=== PATIENT | male | born 1965 | race Caucasian/White ===

== ENCOUNTER → 2022-04-20 | Outpatient (CLI) | payer OTHER, SELFPAY ==
--- NOTE | 2022-04-20 16:56 | RAD_ITS ---
EXAM: XR CHEST, 2 VIEWS CLINICAL INDICATION: SOB TECHNIQUE: Frontal and lateral views of the chest. This report was created using Ribbit report generation technology. COMPARISON: None. FINDINGS: LUNGS AND PLEURAL SPACES: Unremarkable. No consolidation or edema. No pneumothorax. No effusion. HEART: Unremarkable. Cardiac silhouette not enlarged. MEDIASTINUM: Central airways and mediastinal contour are unremarkable. BONES/JOINTS: Unremarkable. SOFT TISSUES: Unremarkable. RAD/Chest PA and Lateral IMPRESSION: No radiographic evidence of acute cardiopulmonary disease. Electronically Signed: Herminio Bang MD at 20:32 EDT ,
[2022-04-20 17:52] LABS: Mucous, Urine 0 SEEN /hpf (<or=2+); Red Blood Cells-Urine 0 SEEN /hpf (0-5); White Blood Cells 0 SEEN /hpf (0-5)
[2022-04-20 18:07] LABS: Color, Urine Yellow (Yellow); Glucose, Dipstick Normal (Normal); Ketone-Dipstick Negative (Negative); Leukocyte Esterase-Dipstick Negative /ul (Negative); Nitrite-Dipstick Negative (Negative); Occult Blood-Urine 10 /ul (Negative); Protein-Dipstick Negative (Negative); Specific Gravity, Urine 1.015 (1.002-1.030); Urine Bilirubin Dipstick Negative (Negative); Urine Clarity Clear (Clear); Urine Urobilinogen Normal (Normal); Urine pH 6.5 (5.0 - 8.0)
[2022-04-20 18:11] LABS: Absolute Lymphocyte Count 2.51 X10^3/uL (0.83-4.51); Absolute Neutrophil Count 4.8 X10^3/uL (2.0-7.7); Basophil# 0.04 X10^3/uL; Basophil% 0.5 % (0-1); Eosinophil# 0.16 X10^3/uL; Eosinophils% 1.9 % (0-5); Hematocrit 40.3 % (40-54); Hemoglobin 13.5 g/dL (13.0-16.5); Lymphocyte # 2.51 X10^3/ul (0.83-4.51); Mean Corp Hgb Conc 33.5 g/dL (32-36); Mean Corpuscular Hgb 28.4 pg (27.0-32.0); Mean Corpuscular Volume 84.8 fL (80-94); Mean Platelet Vol. 10.7 fl (6.2-12.0); Monocyte# 0.87 X10^3/uL; Monocyte% 10.4 % (0-10); NRBC Flagged by Analyzer 0 % (0-5); Neutrophil # 4.77 X10^3/uL (2.7-7.7); Neutrophil % 56.8 % (47-70); Platelet Count 193 K/mm3 (150-450); RBC Distribution Width CV 12.5 % (11.6-14.6); RBC Distribution Width SD 38.5 fl (35.1-43.9); Red Blood Count 4.75 M/mm3 (4.6-6.2); White Blood Count 8.4 K/mm3 (4.4-11.0)
[2022-04-20 18:20] LABS: Bacteria RARE /hpf (None Seen); Squamous Epithelial Cells - UA 0-5 SEEN /hpf (0-5)
[2022-04-20 18:31] LABS: Vitamin B12 269 pg/mL (211-911); Vitamin D,25 Hydroxy 27.6 ng/mL
[2022-04-20 18:34] LABS: ALB/GLOB Ratio 1.1 RATIO (0.9-2.4); AST(SGOT) 14 U/L (15-37); Alanine Aminotransfer ALT/SGPT 23 U/L (16-61); Albumin, Serum 3.9 g/dL (3.2-5.0); Alkaline Phosphatase 59 U/L (45-117); Anion Gap 6 (5-15); BUN 14 mg/dL (7-18); BUN/Creat Ratio 14.1 RATIO (10-20); Chloride 107 mmol/L (98-107); Cholesterol 229 mg/dL (200); Creatinine, Serum 0.99 mg/dL (0.70-1.30); EST Glomerular Filtration Rate 82 mL/min (>60); Est Glom Filt Rate - Afr Amer 100 mL/min (>60); Globulin 3.6 g/dL (2.2-4.2); Glucose 85 mg/dL (74-106); High Density Lipoprotein 42 mg/dL; Potassium 4.3 mmol/L (3.5-5.1); Protein, Total 7.5 g/dL (6.4-8.2); Sodium Level 140 mmol/L (136-145); T4 Free Direct 1.01 ng/dL (0.76-1.46); Thyroid Stim Hormone (TSH) 0.92 uIU/mL (0.358-3.74); Triglycerides 71 mg/dL; Very Low Density Lipoprotein 14 mg/dL (5-40)
== END | disposition home or self-care (01) ==
LOC: MTLAB 16:55
PROVIDERS: PCP Family Medicine; Referring Provider Family Medicine; Visit Provider Family Medicine
DX: R06.02 Shortness of breath (principal); R53.83 Other fatigue; E66.9 Obesity, unspecified; R03.0 Elevated blood-pressure reading, without diagnosis of hypertension
CPT/HCPCS: 71046; 80053; 80061; 81001; 82306; 82607; 84439; 84443; 85025

== ENCOUNTER → 2022-07-13 | Outpatient (CLI) | payer OTHER, SELFPAY ==
--- NOTE | 2022-07-13 07:38 | ECHOCS_ITS ---
Reason For Study: SOB Procedure This was a 2D Doppler, Color Flow transthoracic echocardiogram. The study was technically difficult. Contrast injection was performed. Exam performed in department. Left Ventricle The left ventricle is normal in size, thickness, and systolic function. The left ventricular ejection fraction is 65 %. Unable to assess diastolic function based on available data. Right Ventricle Normal right ventricle. Atria The left atrium is severely enlarged. Normal right atrium. Mitral Valve Trivial mitral valve insufficiency. Tricuspid Valve Normal tricuspid valve. Aortic Valve Trisinus/trileaflet aortic valve. Trivial aortic valve insufficiency. Pulmonic Valve The pulmonic valve is not well visualized. Great Vessels Normal sized aortic root. Pericardium/Pleural No pericardial effusion. Medication 20 gauge I.V. with prn adaptor inserted into right arm. Diluted definity 2ml given slow IV push to enhance endocardial definition. MMode/2D Measurements & Calculations LVIDd: 5.3 cm IVSd: 0.73 cm LA dimension: 4.7 cm LVIDs: 3.2 cm LVPWd: 0.68 cm FS: 39.7 % LAV(MOD-bp): 72.9 ml LA A4 area: 23.9 cm2 RA A4 area: 18.6 cm2 LAV(MOD-bp) Indexed: 31.1 ml/m2 LAV(MOD-sp2): 61.0 ml LAV(MOD-sp4): 77.0 ml Time Measurements MV dec time: 0.18 sec Doppler Measurements & Calculations MV E max jorge: 83.7 cm/sec Lat Peak E' Jorge: 9.7 cm/sec Med Peak E' Jorge: 10.6 cm/sec MV A max jorge: 71.0 cm/sec E/E' lat: 8.6 E/E' med: 7.9 MV E/A: 1.2 MV V2 max: 105.1 cm/sec MV dec slope: 478.8 cm/sec2 Ao V2 max: 148.5 cm/sec MV max P.4 mmHg Ao max P.8 mmHg MV V2 mean: 51.7 cm/sec MV mean P.3 mmHg MV V2 VTI: 22.3 cm LV V1 max: 113.2 cm/sec PA V2 max: 85.5 cm/sec PI dec slope: 576.4 cm/sec2 LV V1 max P.2 mmHg PA V2 mean: 57.8 cm/sec ECHO/Echo Complete W/ Contrast Interpretation Summary The left ventricular ejection fraction is 65 %. Ordering Physician: Kayden Shearer Referring Physician: Kayden Shearer Performed By: Ferny Dallas RCS
== END | disposition home or self-care (01) ==
LOC: CVS 07:37
PROVIDERS: PCP Family Medicine; Referring Provider Family Medicine; Visit Provider Family Medicine
DX: R06.02 Shortness of breath (principal)
CPT/HCPCS: 93306; Q9957; A4216; C8929

== ENCOUNTER → 2022-09-11 | Outpatient (CLI) | payer OTHER, SELFPAY ==
[2022-09-11 17:45] LABS: Absolute Lymphocyte Count 2.29 X10^3/uL (0.83-4.51); Absolute Neutrophil Count 4.8 X10^3/uL (2.0-7.7); Basophil# 0.03 X10^3/uL; Basophil% 0.4 % (0-1); Eosinophil# 0.21 X10^3/uL; Eosinophils% 2.6 % (0-5); Hemoglobin 13.8 g/dL (13.0-16.5); Lymphocyte # 2.29 X10^3/ul (0.83-4.51); Lymphocyte % 28.6 % (19-41); Mean Corp Hgb Conc 33.7 g/dL (32-36); Mean Corpuscular Hgb 29.1 pg (27.0-32.0); Mean Corpuscular Volume 86.3 fL (80-94); Mean Platelet Vol. 10.2 fl (6.2-12.0); Monocyte# 0.64 X10^3/uL; NRBC Flagged by Analyzer 0 % (0-5); Neutrophil # 4.79 X10^3/uL (2.7-7.7); Neutrophil % 59.8 % (47-70); Platelet Count 211 K/mm3 (150-450); RBC Distribution Width CV 12.4 % (11.6-14.6); RBC Distribution Width SD 39.1 fl (35.1-43.9); Red Blood Count 4.75 M/mm3 (4.6-6.2)
[2022-09-11 18:02] LABS: ALB/GLOB Ratio 1.2 RATIO (0.9-2.4); AST(SGOT) 16 U/L (15-37); Alanine Aminotransfer ALT/SGPT 36 U/L (16-61); Albumin, Serum 3.7 g/dL (3.2-5.0); Alkaline Phosphatase 58 U/L (45-117); Anion Gap 6 (5-15); BUN 18 mg/dL (7-18); BUN/Creat Ratio 19.6 RATIO (10-20); Calcium,Total 8.6 mg/dL (8.5-10.1); Chloride 106 mmol/L (98-107); Cholesterol 209 mg/dL (200); Creatinine, Serum 0.92 mg/dL (0.70-1.30); EST Glomerular Filtration Rate 90 mL/min (>60); Est Glom Filt Rate - Afr Amer 108 mL/min (>60); Globulin 3.1 g/dL (2.2-4.2); Glucose 95 mg/dL (74-106); High Density Lipoprotein 38 mg/dL; Protein, Total 6.8 g/dL (6.4-8.2); Sodium Level 140 mmol/L (136-145); Triglycerides 101 mg/dL; Very Low Density Lipoprotein 20 mg/dL (5-40); Vitamin D,25 Hydroxy 25.8 ng/mL
== END | disposition home or self-care (01) ==
LOC: MTLAB 16:29
PROVIDERS: PCP Family Medicine; Referring Provider Family Medicine; Visit Provider Family Medicine
DX: E78.5 Hyperlipidemia, unspecified (principal); E55.9 Vitamin D deficiency, unspecified
CPT/HCPCS: 36415; 80053; 80061; 82306; 85025

== ENCOUNTER → 2022-09-14 | Outpatient (CLI) | payer OTHER, SELFPAY ==
--- NOTE | 2022-09-17 11:41 | STRESSREP ---
Stress Test Report Date: 09/14/2022 Procedure: Exercise tolerance test Indications: Chest pain Consent: Per the patient Procedure: The patient exercised on a Douglas protocol for 6 minutes achieving a peak heart rate of 148 bpm (91% predicted maximal heart rate) with a peak blood pressure 212/70 mmHg and a peak MET capacity of approximately 7.2 MET's. The baseline ECG demonstrated normal sinus rhythm. The peak exercise ECG demonstrated no significant ischemic changes. [There were no cardiac dysrhythmias pretest, during exercise, or recovery]. The functional capacity was considered normal for age. The patient had no complaint of chest discomfort during exercise or recovery. The examination was discontinued secondary to dyspnea. Impression: 1. Technically adequate (percent predicted maximal heart rate greater than 85%) exercise tolerance test 2. Stress test is negative for exercise-induced chest pain. 3. Stress test test negative for exercise-induced EKG changes of ischemia. 4. Functional capacity is normal for age This note was generated with Antenna Softwareation software. It may contain incorrect words, spelling, and punctuation that were not noted in checking the note before signing.
== END | disposition home or self-care (01) ==
PROVIDERS: PCP Family Medicine; Visit Provider Family Medicine
DX: R07.9 Chest pain, unspecified (principal); R06.02 Shortness of breath
CPT/HCPCS: 93017

== ENCOUNTER → 2022-12-05 | Outpatient (CLI) | payer OTHER, SELFPAY ==
[2022-12-05 18:26] LABS: ALB/GLOB Ratio 1.1 RATIO (0.9-2.4); AST(SGOT) 22 U/L (15-37); Alanine Aminotransfer ALT/SGPT 39 U/L (16-61); Albumin, Serum 3.7 g/dL (3.2-5.0); Alkaline Phosphatase 60 U/L (45-117); Anion Gap 7 (5-15); BUN 19 mg/dL (7-18); BUN/Creat Ratio 21.9 RATIO (10-20); Chloride 108 mmol/L (98-107); Cholesterol 210 mg/dL (200); Creatinine, Serum 0.87 mg/dL (0.70-1.30); EST Glomerular Filtration Rate 96 mL/min (>60); Est Glom Filt Rate - Afr Amer 116 mL/min (>60); Globulin 3.5 g/dL (2.2-4.2); Glucose 96 mg/dL (74-106); High Density Lipoprotein 36 mg/dL; Potassium 4.1 mmol/L (3.5-5.1); Protein, Total 7.2 g/dL (6.4-8.2); Sodium Level 139 mmol/L (136-145); Triglycerides 132 mg/dL; Very Low Density Lipoprotein 26 mg/dL (5-40)
== END | disposition home or self-care (01) ==
LOC: MTLAB 15:11
PROVIDERS: PCP Family Medicine; Referring Provider Family Medicine; Visit Provider Family Medicine
DX: E55.9 Vitamin D deficiency, unspecified (principal); E78.5 Hyperlipidemia, unspecified
CPT/HCPCS: 36415; 80053; 80061; 82306

== ENCOUNTER → 2023-03-21 | Outpatient (CLI) | payer OTHER, SELFPAY ==
[2023-03-21 15:16] LABS: Absolute Neutrophil Count 4.2 X10^3/uL (2.0-7.7); Basophil# 0.03 X10^3/uL; Basophil% 0.4 % (0-1); Eosinophil# 0.21 X10^3/uL; Eosinophils% 2.9 % (0-5); Hematocrit 39.5 % (40-54); Hemoglobin 12.7 g/dL (13.0-16.5); Lymphocyte % 32.6 % (19-41); Mean Corp Hgb Conc 32.2 g/dL (32-36); Mean Corpuscular Hgb 27.7 pg (27.0-32.0); Mean Corpuscular Volume 86.1 fL (80-94); Mean Platelet Vol. 11.2 fl (6.2-12.0); Monocyte# 0.52 X10^3/uL; Monocyte% 7.1 % (0-10); NRBC Flagged by Analyzer 0 % (0-5); Neutrophil # 4.18 X10^3/uL (2.7-7.7); Neutrophil % 56.7 % (47-70); Platelet Count 175 K/mm3 (150-450); RBC Distribution Width CV 12.2 % (11.6-14.6); RBC Distribution Width SD 38.3 fl (35.1-43.9); Red Blood Count 4.59 M/mm3 (4.6-6.2); White Blood Count 7.4 K/mm3 (4.4-11.0)
[2023-03-21 15:41] LABS: Vitamin D,25 Hydroxy 37.7 ng/mL
[2023-03-21 15:48] LABS: AST(SGOT) 18 U/L (15-37); Alanine Aminotransfer ALT/SGPT 30 U/L (16-61); Albumin, Serum 3.4 g/dL (3.2-5.0); Alkaline Phosphatase 52 U/L (45-117); Anion Gap 8 (5-15); BUN 16 mg/dL (7-18); BUN/Creat Ratio 15.7 RATIO (10-20); Calcium,Total 8.5 mg/dL (8.5-10.1); Chloride 111 mmol/L (98-107); Cholesterol 169 mg/dL (200); Creatinine, Serum 1.02 mg/dL (0.70-1.30); EST Glomerular Filtration Rate 79 mL/min (>60); Est Glom Filt Rate - Afr Amer 96 mL/min (>60); Globulin 3.3 g/dL (2.2-4.2); Glucose 134 mg/dL (74-106); High Density Lipoprotein 35 mg/dL; Potassium 3.9 mmol/L (3.5-5.1); Protein, Total 6.7 g/dL (6.4-8.2); Sodium Level 141 mmol/L (136-145); Triglycerides 82 mg/dL; Very Low Density Lipoprotein 16 mg/dL (5-40)
[2023-03-22 15:58] LABS: Ferritin 145 ng/mL (26-388); Iron 77 ug/dL (65-175); Iron Binding Capacity,Total 285 ug/dL (250-450); Vitamin B12 330 pg/mL (211-911)
[2023-03-22 16:24] LABS: Hemoglobin A1c 5.6 % (3.8-5.6)
== END | disposition home or self-care (01) ==
LOC: MTLAB 13:36
PROVIDERS: PCP Family Medicine; Referring Provider Family Medicine; Visit Provider Family Medicine
DX: D64.9 Anemia, unspecified (principal); R73.09 Other abnormal glucose; E55.9 Vitamin D deficiency, unspecified; E78.5 Hyperlipidemia, unspecified
CPT/HCPCS: 36415; 80053; 80061; 82306; 82607; 82728; 83036; 83540; 83550; 85025

== ENCOUNTER 2023-05-17 07:19 | Day surgery (SDC) | payer OTHER, SELFPAY ==
[2023-05-17] VITALS (8 sets, daily range): BP systolic 93–148; BP diastolic 41–73; PULSE 58–70; RESP 16–18; TEMP 36.3–36.8; O2SAT 94–98; BMI 41.0
[2023-05-17] MEDS: Lactated Ringers 1,000 ML 15 ML IV (07:53)
--- NOTE | 2023-05-17 08:20 | HP.PCM_ITS ---
HPI - General HPI Narrative SUSANA CORTÉS, is a 57 M who presents for screening colonoscopy. Patient has never had a colonoscopy in the past. Patient denies any abdominal pain or blood in the stool. Patient has no family history of colon cancer. PFSH Medical History (Updated 05/14/23 @ 15:02 by Adelita Go) Anemia CPAP (continuous positive airway pressure) dependence Former smoker High cholesterol History of echocardiogram History of stress test Hyperlipidemia Left atrial enlargement HUY (obstructive sleep apnea) HUY on CPAP Restless legs Shortness of breath on exertion Sleep apnea Vitamin D deficiency Wears glasses Home Medications albuterol sulfate 90 mcg/actuation aerosol inhaler 2 puff inhalation Q4H PRN shortness of breath or wheezing 04/23/23 [History Last Taken Unknown] cholecalciferol (vitamin D3) 50 mcg (2,000 unit) capsule 50 mcg PO DAILY 04/23/23 [History Last Taken Unknown] Allergy/AdvReac Type Severity Reaction Status Date / Time rosuvastatin [From Crestor] AdvReac HEADACHE Verified 05/17/23 07:33 Social History (Updated 04/23/23 @ 11:02 by Rosetta Meyer) current occupational status: employed Smoking Status: Former smoker Past Medical/Surgical History Planned Operation Planned Operative Procedure/s: COLONOSCOPY-OA Previous Hospitalizations/Surgeries HX Hospitalizations: No Any Problems With Anesthesia: No You/Your Family Experience Fever (Hyperthermia) With Anes: No Cholinesterase deficiency: No Cardiovascular Hx Hypertension: No Respiratory Hx Sleep Apnea: Yes CPAP: Yes BIPAP: No Hx Respiratory Tract Infection/Cold (presently): No Do You Snore Loudly (louder than talking or can be heard): No Do You Often Feel Tired/ Fatigued/ Sleepy Dring Daytime?: No Has Anyone Observed You Stop Breathing During Sleep?: No Result (for STOP score): Positive Smoking Status: Former smoker Neurological Does patient have nerve stimulator: No Miscellaneous Recent Exposure to Contagious Disease: No Allergies rosuvastatin [From Crestor] Adverse Reaction (Verified 05/17/23 07:33) HEADACHE Discharge Is Pt Admitted From a Residential, or a Long-Term: No After D/C, Where Do you Plan to Go: Return Home Vital Signs Vital Signs Vital Signs: 05/17/23 07:34 05/17/23 07:34 Temperature 97.4 F L Temperature Source Temporal Pulse Rate 70 Respiratory Rate 18 Respiratory Pattern Normal Blood Pressure 148/69 H Blood Pressure Mean 95 Blood Pressure Source Monitor Blood Pressure Position Semi-Fowlers Blood Pressure Location Left Arm Pulse Ox 98 Oxygen Delivery Method Room Air Weight Weight: 277 lb 12.519 oz Body Mass Index (BMI) 41.0 Physical Exam Const alert and oriented x3 HEENT normocephalic Eyes PERRL Resp normal respiratory effort and normal air movement Cardio regular rate and regular rhythm GI soft to palpation, non-tender and non-distended Extremity normal to inspection Assessment & Plan Assessment/Plan (1) Encounter for screening for malignant neoplasm of colon: PLAN: I explained endoscopy in detail to the patient. I explained the risks including but not limited to stroke or heart attack with anesthesia, perforation of the GI tract, bleeding, infection. I explained that any of these could necessitate further emergency surgery. The patient understands and all questions were answered sufficiently. The patient wishes to proceed with procedure. Moises Enriquez MD Pager: [facility] [address] [place] [address] [address] [place] [address] Office: Surgery Risks - Colonoscopy Risks Include but are not Limited To: Risks include but are not limited to: Bleeding, perforation requiring further surgery, inability to complete colonoscopy requiring barium enema.
--- NOTE | 2023-05-17 08:57 | OP.COLON_ITS ---
Patient Name: Gume Hardin Procedure Date: 05/17/2023 8:26 AM Date of : 1965 Age: 57 Procedure: Colonoscopy Indications: Screening for colorectal malignant neoplasm Providers: Moises Enriquez MD Referring MD: Kayden Shearer Medicines: Monitored Anesthesia Care Patient Profile: Last Colonoscopy: none. The patient's first colonoscopy is today. Complications: No immediate complications. Procedure: Pre-Anesthesia Assessment: - Prior to the procedure, a History and Physical was performed, and patient medications and allergies were reviewed. The patient's tolerance of previous anesthesia was also reviewed. The risks and benefits of the procedure and the sedation options and risks were discussed with the patient. All questions were answered, and informed consent was obtained. Prior Anticoagulants: The patient has taken no anticoagulant or antiplatelet agents. After reviewing the risks and benefits, the patient was deemed in satisfactory condition to undergo the procedure. After I obtained informed consent, the scope was passed under direct vision. Throughout the procedure, the patient's blood pressure, pulse, and oxygen saturations were monitored continuously. The pediatric colonoscope was introduced through the anus and advanced to the cecum, identified by appendiceal orifice and ileocecal valve. The colonoscopy was performed without difficulty. The patient tolerated the procedure well. The quality of the bowel preparation was good. The ileocecal valve, appendiceal orifice, and rectum were photographed. Scope In: 8:40:23 AM Scope Withdrawal Time 0 hours 4 minutes 7 seconds Scope Out: 8:50:00 AM Total Procedure Duration Time 0 hours 9 minutes 37 seconds Findings: The entire examined colon appeared normal on direct and retroflexion views. Impression: - The entire examined colon is normal on direct and retroflexion views. - No specimens collected. Recommendation: - Discharge patient to home. - Resume previous diet. - Continue present medications. - Repeat colonoscopy in 10 years for screening purposes. Procedure Code(s): --- Professional --- 02368, Colonoscopy, flexible; diagnostic, including collection of specimen(s) by brushing or washing, when performed (separate procedure) Diagnosis Code(s): --- Professional --- Z12.11, Encounter for screening for malignant neoplasm of colon CPT copyright 2021 [employer]. All rights reserved. The codes documented in this report are preliminary and upon getterer review may be revised to meet current compliance requirements. Moises Enriquez MD 05/17/2023 8:57:35 AM This report has been signed electronically. Number of Addenda: 0 Note Initiated On: 05/17/2023 8:26 AM
--- NOTE | 2023-05-17 08:58 | OP.CCLET_ITS ---
05/17/2023 Kayden Shearer [address] [place] [address] Re : Colonoscopy procedure for Gume Hardin Dear Dr. Shearer This procedure was performed on Wednesday, May 17, 2023. My impressions and recommendations are as follows: Impressions : - The entire examined colon is normal on direct and retroflexion views. - No specimens collected. Recommendations : - Discharge patient to home. - Resume previous diet. - Continue present medications. - Repeat colonoscopy in 10 years for screening purposes. My findings are described in the full procedure note, which is enclosed. If I can be of further assistance, please feel free to contact me at Doctor phone number(s): , Work: . Sincerely, Moises Enriquez MD 05/17/2023 8:57:35 AM This report has been signed electronically.
== END 2023-05-17 09:55 | disposition home or self-care (01) ==
LOC: EN 07:19 → AC 07:21
PROVIDERS: PCP Family Medicine; Referring Provider Family Medicine; Visit Provider Surgery
PROC: 0DJD8ZZ Inspection of Lower Intestinal Tract, Via Natural or Artificial Opening Endoscopic (ICD-10-PCS; CPT 45378; principal; 2023-05-17 08:25)
DX: Z12.11 Encounter for screening for malignant neoplasm of colon (principal); G47.33 Obstructive sleep apnea (adult) (pediatric); Z87.891 Personal history of nicotine dependence; Z79.899 Other long term (current) drug therapy
CPT/HCPCS: 45378; J7120; J2405

== ENCOUNTER → 2023-09-19 | Outpatient (CLI) | payer OTHER, SELFPAY ==
[2023-09-19 17:30] LABS: Absolute Lymphocyte Count 2.23 X10^3/uL (0.83-4.51); Absolute Neutrophil Count 4.6 X10^3/uL (2.0-7.7); Basophil# 0.04 X10^3/uL; Basophil% 0.5 % (0-1); Eosinophil# 0.15 X10^3/uL; Hematocrit 39.6 % (40-54); Hemoglobin 12.9 g/dL (13.0-16.5); Lymphocyte # 2.23 X10^3/ul (0.83-4.51); Lymphocyte % 29.5 % (19-41); Mean Corp Hgb Conc 32.6 g/dL (32-36); Mean Corpuscular Hgb 27.3 pg (27.0-32.0); Mean Corpuscular Volume 83.9 fL (80-94); Mean Platelet Vol. 10.9 fl (6.2-12.0); Monocyte# 0.53 X10^3/uL; NRBC Flagged by Analyzer 0 % (0-5); Neutrophil # 4.58 X10^3/uL (2.7-7.7); Neutrophil % 60.7 % (47-70); Platelet Count 180 K/mm3 (150-450); RBC Distribution Width CV 12.1 % (11.6-14.6); RBC Distribution Width SD 36.8 fl (35.1-43.9); Red Blood Count 4.72 M/mm3 (4.6-6.2); White Blood Count 7.6 K/mm3 (4.4-11.0)
[2023-09-19 17:44] LABS: Vitamin D,25 Hydroxy 31.4 ng/mL
[2023-09-19 17:54] LABS: AST(SGOT) 19 U/L (15-37); Alanine Aminotransfer ALT/SGPT 29 U/L (16-61); Albumin, Serum 3.5 g/dL (3.2-5.0); Alkaline Phosphatase 68 U/L (45-117); Anion Gap 8 (5-15); BUN 15 mg/dL (7-18); BUN/Creat Ratio 15.3 RATIO (10-20); Calcium,Total 8.2 mg/dL (8.5-10.1); Chloride 109 mmol/L (98-107); Cholesterol 195 mg/dL (200); Creatinine, Serum 0.98 mg/dL (0.70-1.30); EST Glomerular Filtration Rate 83 mL/min (>60); Est Glom Filt Rate - Afr Amer 100 mL/min (>60); Globulin 3.6 g/dL (2.2-4.2); Glucose 165 mg/dL (74-106); High Density Lipoprotein 39 mg/dL; PSA,Total - Annual Screen 1.23 ng/mL (0.00-4.00); Potassium 3.7 mmol/L (3.5-5.1); Protein, Total 7.1 g/dL (6.4-8.2); Sodium Level 140 mmol/L (136-145); Triglycerides 115 mg/dL; Very Low Density Lipoprotein 23 mg/dL (5-40)
== END | disposition home or self-care (01) ==
LOC: MTLAB 16:33
PROVIDERS: PCP Family Medicine; Referring Provider Family Medicine; Visit Provider Family Medicine
DX: E78.5 Hyperlipidemia, unspecified (principal); E55.9 Vitamin D deficiency, unspecified; D64.9 Anemia, unspecified; Z12.5 Encounter for screening for malignant neoplasm of prostate
CPT/HCPCS: 36415; 80053; 80061; 82306; 84153; 85025; G0103

== ENCOUNTER → 2024-08-12 | Outpatient (CLI) | payer OTHER, SELFPAY | END | disposition home or self-care (01) | LOC: MTRAD 16:18 | PROVIDERS: PCP Family Medicine; Referring Provider Physician Assistant; Visit Provider Physician Assistant | DX: S99.912A Unspecified injury of left ankle, initial encounter (principal) | CPT/HCPCS: 73610 ==

== ENCOUNTER 2025-03-29 18:40 | Emergency (ER) | payer OTHER, SELFPAY ==
[2025-03-29 18:41] VITALS: BP 188/103; PULSE 76; RESP 18; O2SAT 98
[2025-03-29 18:42] VITALS: BP 188/103; PULSE 87; RESP 14; TEMP 36.1; O2SAT 98; BMI 43.8
[2025-03-29 19:41] VITALS: BP 118/96; O2SAT 97
--- NOTE | 2025-03-29 19:52 | EKG12_ITS ---
Test Reason : CP Blood Pressure : */* mmHG Vent. Rate : 78 BPM Atrial Rate : 78 BPM P-R Int : 166 ms QRS Dur : 86 ms QT Int : 372 ms P-R-T Axes : 44 24 35 degrees QTcB Int : 424 ms Normal sinus rhythm Normal ECG Confirmed by EITAN DEL CID, ZARI ([id number]), technical writer and editor PARESH QURESHI ([id number]) on 03/30/2025 11:16:39 AM Referred By: AR Confirmed By: ZARI LAIRD MD
--- NOTE | 2025-03-29 19:57 | EX.ED.DYSGE1 ---
HPI History of Present Illness Chief Complaint: Dizziness Narrative Narrative: 59-year-old male presents with his because of pain in his right yazidism and spasming that he has had intermittently over the last 3 years. She also had chest pain and considerable workup as well. 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 He became concerned today because he felt that this fleeting spasming or pain on the right side of his eye and yazidism was affecting his reflexes. He denies any fevers or chills, no loss of vision, no exacerbating or alleviating factors. He states he also has had intermittent chest pain over the last 3 years as well. He had echocardiogram done, and multiple workups but states that they cannot find anything wrong. Once again, he denies any loss of vision, no numbness or tingling of his arms or legs, no loss of motor function. This is the first time that he thought that the pain in his right eye affected his reaction times. [facility] Medical History Strain of left Achilles tendon CPAP (continuous positive airway pressure) dependence Sleep apnea Wears glasses High cholesterol Restless legs Former smoker Shortness of breath on exertion History of echocardiogram History of stress test Left atrial enlargement Anemia Hyperlipidemia Vitamin D deficiency HUY on CPAP HUY (obstructive sleep apnea) Home Medications ?Medication ?Instructions ?Recorded ?Last Taken ?Type albuterol sulfate 90 mcg/actuation 2 puff inhalation Q4H PRN 04/23/23 Unknown History aerosol inhaler shortness of breath or wheezing cholecalciferol (vitamin D3) 50 50 mcg PO DAILY 04/23/23 Unknown History mcg (2,000 unit) capsule Allergy/AdvReac Type Severity Reaction Status Date / Time rosuvastatin (From Crestor) AdvReac HEADACHE Verified 03/29/25 18:41 Social History current occupational status: employed Smoking Status: Unknown if ever smoked ROS ROS ED ROS Narrative Review of systems positive for right side of eye/yazidism pain, fleeting, ongoing for the last 3 years. No loss of vision. No pain with eye movement. No headache. Complains of intermittent chest pain as well. No current shortness of breath. No cough. EXAM Physical Exam Narrative Exam Narrative: Afebrile. Vital signs noted. Nontoxic-appearing. Cardiovascular examination reveals a regular rate and rhythm. Lungs are clear to auscultation bilaterally. Abdomen is soft and nontender without guarding or rebound. Neurological examination is nonfocal, nonlateralizing. HEENT examination reveals PERRL, EOMI. No pulse deficit right yazidism. Const Vital Signs: 03/29/25 18:41 03/29/25 18:42 03/29/25 19:41 Temperature 97 F L Temperature Source Temporal Pulse Rate 76 87 Respiratory Rate 18 14 Blood Pressure 188/103 H 188/103 H 118/96 H Blood Pressure Mean 131 131 103 Pulse Ox 98 98 97 Oxygen Delivery Method Room Air Room Air Room Air 03/29/25 20:00 03/29/25 21:00 Temperature Temperature Source Pulse Rate 67 Respiratory Rate Blood Pressure 118/96 H 117/79 Blood Pressure Mean 103 91 Pulse Ox 97 95 Oxygen Delivery Method Room Air Room Air MDM MDM MDM Narrative Medical decision making narrative: Differential diagnosis includes but not limited to blepharospasm versus giant cell arteritis versus intracranial hemorrhage. I have low suspicion for stroke. I had a lengthy discussion with the patient. He states he has been worked up by pulmonology and no longer sees a primary care physician because he went every 3 months for the same yazidism pain, and chest pain and has had extensive workup. EKG was obtained and interpreted by myself independently as normal sinus rhythm at 78 bpm without ectopy or acute ST changes. No STEMI. Initially had elevated blood pressure, it is normalized upon repeat examination to 117 systolic. I reviewed his laboratory work and he has normal white count of 7.8 with hemoglobin normal at 13.0, platelet count normal at 182. Electrolyte panel is grossly unremarkable with normal sodium 139 potassium 3.9. Glucose elevated at 125 with normal anion gap of 13, high-sensitivity troponin less than 6. I doubt ACS and I do not feel he needs serial enzymes as this has been ongoing for [address] of the brain was obtained and there is no acute process on review of the radiology report. Chest x-ray interpreted by myself independently shows no pneumonia or pneumothorax. I reviewed the radiology report which confirms my independent interpretation. With the thought of temporal arteritis, I obtained an ESR which is normal at 17. I do not feel that he needs a temporal artery biopsy. Upon repeat examination he is resting comfortably. I do not feel that there is a direct correlation between his reported loss of response time or reflexes as he stated. I offered to write him off work for the next day or 2 but he declined. I do not feel he requires observation or admission. Return instructions to the emergency department were reviewed. Disposition is discharged home in stable condition. History & Record Review Discussion w/independent historian: Patient and Family Additional record(s) reviewed:: Prior outpatient record (Noncontributory to current chief complaint) Lab Data Attestation: I reviewed the patient's lab results. Labs: Laboratory Results - last 24 hr 03/29/25 19:04 WBC 7.8 RBC 4.63 Hgb 13.0 Hct 38.6 L MCV 83.4 MCH 28.1 MCHC 33.7 RDW Std Deviation 38.3 RDW Coeff of [place] 12.7 Plt Count 182 MPV 11.1 Immature Gran % (Auto) 0.400 Neut % (Auto) 57.4 Lymph % (Auto) 29.2 [place] % (Auto) 8.4 Eos % (Auto) 4.1 Baso % (Auto) 0.5 Absolute Neuts (auto) 4.5 Absolute Lymphs (auto) 2.29 Nucleated RBC % 0 ESR 17 Sodium 139 Potassium 3.9 Chloride 105 Carbon Dioxide 22.0 Anion Gap 13 BUN 11 Creatinine 0.89 Estim Creat Clear Calc 118.72 Est GFR (MDRD) Non-Af 98 BUN/Creatinine Ratio 12.1 Glucose 125 H Calcium 8.9 Troponin T High Sens < 6 Radiography Diagnostic Testing: Clinical Impression(s) from Imaging Studies Brain CT 03/29/25 20:06 IMPRESSION: 1. No acute intracranial abnormality. 2. Left-sided sinus disease. Reading Location: [facility] Chest X-Ray 03/29/25 20:06 IMPRESSION: No acute cardiopulmonary abnormality. Reading Location: [facility] Discharge Plan Triage Chief Complaint: Dizziness ED Provider: Ulices Diaz Dx/Rx/DC Orders Clinical Impression: Pain around eye, Right facial pain Instructions: ED Pain, Acute, Uncertain Cause Prescriptions: No Action cholecalciferol (vitamin D3) 50 mcg (2,000 unit) capsule 50 mcg PO DAILY albuterol sulfate 90 mcg/actuation HFA aerosol inhaler 2 puff inhalation Q4H PRN (Reason: shortness of breath or wheezing) Primary Care Provider: Care Physician,No Primary Referrals: Figueroa Shaw MD [Med Staff - Active Staff] - 3-5 Days if not improving Care Physician,No Primary [Primary Care Provider] - Activity Restrictions/Additional Instructions: Follow-up with your primary care provider. Return with fever, loss of vision, new or worsening symptoms. Print Language: Sami Disposition Disposition: Home, Self Care
[2025-03-29 20:00] VITALS: BP 118/96; O2SAT 97
--- NOTE | 2025-03-29 20:03 | PCA ---
no old ekg
--- NOTE | 2025-03-29 20:06 | CT_ITS ---
PROCEDURE: BRAIN/HEAD WITHOUT CONTRAST 03/29/2025 REASON FOR EXAM: PAIN RIGHT CHURCH TECHNIQUE: BRAIN/HEAD WITHOUT CONTRAST Coronal and Sagittal reconstruction series were provided. One or more dose reduction techniques were used (e.g., Automated exposure control, adjustment of the mA and/or kV according to patient size, use of iterative reconstruction technique. RADIATION DOSE SUMMARY: CTDlvol: 47.1 mGy DLP: 926 mGycm COMPARISON: None FINDINGS: Brain: No acute intracranial hemorrhage, mass effect, or midline shift. Chery- white differentiation is predominantly maintained. CSF Spaces: Unremarkable for age. Sinuses/Mastoids: Mucosal thickening and opacification throughout the left-sided sinuses. Bones: Congenital incomplete fusion of the posterior arch of C1. CT/Brain/Head without Contrast IMPRESSION: 1. No acute intracranial abnormality. 2. Left-sided sinus disease. Reading Location: [id number]
--- NOTE | 2025-03-29 20:06 | RAD_ITS ---
PROCEDURE: CHEST 1 VIEW (PORTABLE) 03/29/2025 REASON FOR EXAM: CHEST PAIN TECHNIQUE: Frontal view of the chest. COMPARISON: Chest radiographs on 04/20/2022 FINDINGS: Hardware: None Heart: Cardiac and mediastinal contours are stable. Aortic atherosclerosis. Lungs: No focal consolidation or pleural effusion. Bones: Degenerative changes are identified within the thoracic spine. RAD/Chest 1 View (Portable) IMPRESSION: No acute cardiopulmonary abnormality. Reading Location: [facility]
[2025-03-29 20:46] LABS: Absolute Lymphocyte Count 2.29 X10^3/uL (0.83-4.51); Absolute Neutrophil Count 4.5 X10^3/uL (2.0-7.7); Basophil# 0.04 X10^3/uL; Basophil% 0.5 % (0-1); Eosinophil# 0.32 X10^3/uL; Eosinophils% 4.1 % (0-5); Hematocrit 38.6 % (40-54); Lymphocyte # 2.29 X10^3/ul (0.83-4.51); Lymphocyte % 29.2 % (19-41); Mean Corp Hgb Conc 33.7 g/dL (32-36); Mean Corpuscular Hgb 28.1 pg (27.0-32.0); Mean Corpuscular Volume 83.4 fL (80-94); Mean Platelet Vol. 11.1 fl (6.2-12.0); Monocyte# 0.66 X10^3/uL; Monocyte% 8.4 % (0-10); NRBC Flagged by Analyzer 0 % (0-5); Neutrophil % 57.4 % (47-70); Platelet Count 182 K/mm3 (150-450); RBC Distribution Width CV 12.7 % (11.6-14.6); RBC Distribution Width SD 38.3 fl (35.1-43.9); Red Blood Count 4.63 M/mm3 (4.6-6.2); White Blood Count 7.8 K/mm3 (4.4-11.0)
[2025-03-29 21:00] VITALS: BP 117/79; PULSE 67; O2SAT 95
[2025-03-29 21:11] LABS: Anion Gap 13 (5-15); BUN 11 mg/dL (4-19); BUN/Creat Ratio 12.1 RATIO (10-20); Calcium,Total 8.9 mg/dL (7.6-11.0); Chloride 105 mmol/L (98-108); Creatinine, Serum 0.89 mg/dL (0.70-1.20); EST Glomerular Filtration Rate 98 (>60); Estimated Creatinine Clearance 118.72 ml/min (50-250); Glucose 125 mg/dL (70-99); Potassium 3.9 mmol/L (3.3-5.1); Sodium Level 139 mmol/L (133-145)
[2025-03-29 21:18] LABS: Erythrocyte Sedimentation Rate 17 mm/hr (0-20)
[2025-03-29 21:30] LABS: Troponin T High Sensitivity < 6 ng/L (<=22)
[2025-03-29 21:48] VITALS: BP 149/83; PULSE 65; RESP 16; TEMP 36.1; O2SAT 97
--- OUTSIDE RECORDS SUMMARY | 2025-03-29 23:21 | XMS RPT_ITS | CCD ---
Author Organization [facility]iniSy[facility] Care Team Providers Care Mental Health Nurse Practitioner Name Role Phone Unavailable Primary Care Provider UnavailDr. Kayden Lundberg Primary Care Provider [phone] Dr. Pablo Acuña Attending Provider [phone] Kayden Shearer Primary Care Provider Dr. Pablo Acuña Attending Provider Dr. Kayden Shearer Other Provider Dr. Phillip Alvarez Attending Provider Dr. Kayden Shearer Primary Care Provider Rosetta Meyer Attending Provider Unavailable Dr. Kayden Shearer Referring Provider Dr. Moises Enriquez Attending Provider Dr. Moises Enriquez Other Provider Kayden Shearer Referring Unavailable Kayden Shearer Primary Care Unavailable Nick Aguillon Attending Unavailable Kayden Shearer Referring Unavailable Kayden Shearer Primary Care Unavailable Nick Aguillon Attending Unavailable Kayden Shearer Primary Care Unavailable Nick Aguillon Referring Unavailable Nick Aguillon Attending Unavailable Kayden Shearer Referring Unavailable Kayden Shearer Attending Unavailable Kayden Shearer Primary Care Unavailable Care Physician, No Primary Primary Care Provider Unavailable Joe DEL CID, Ulices Emergency Provider Allergies Allergy Classification Reported Allergen(s) Allergy Type Date of Onset Reaction(s) Facility (3 sources) rosuvastatin Drug Allergy 05-17-2023 HEADACHE [facility] (1 source) rosuvastatin Drug Allergy 08-12-2024 [facility] Repository Medications Current Medications Medication Drug Class(es) Dates Sig (Normalized) Sig (Original) [id number] 200 actuat albuterol 0.09 mg/actuat metered dose inhaler (3 sources) beta2-Adrenergic Agonist Start: 04-23-2023 Albuterol Sulfate 90 mcg/actuation HFA aerosol inhaler Active 2 NMA INHALATION Q4H as needed for shortness of breath or wheezing April 23, 2023 12:00am Start: 04-23-2023 take 1 puff(s) by in halation every four hours Albuterol Sulfate Active 2 PUFF INHALATION Q4H April 22, 2023 11:00pm cholecalciferol 0.05 mg oral capsule (3 sources) Vitamin D Start: 04-23-2023 take 1 capsule by mouth once daily Cholecalciferol (Vitamin D3) 50 mcg (2,000 unit) capsule Active 50 ug PO DAILY April 23, 2023 12:00am Completed/Discontinued Medications Medication Drug Class(es) Dates Sig (Normalized) Sig (Original) bacitracin 0.5 unt/mg topical ointment (1 source) Start: 04-08-2020 End: 04-08-2020 bacitracin zinc ointment Problems Active Problems Problem Classification Problem Date Documented Da te Episodic/Chronic Disorders of lipid metabolism (1 source) Hyperlipidemia, unspecified; Translations: [Hyperlipidemia, unspecified] Onset: 09-24-2023 Chronic Headache; including migraine (1 source) Pain in face; Translations: [Right-sided face pain] 03-29-2025 Episodic Other eye disorders (1 source) Pain around eye; Translations: [Ocular pain, unspecified eye] 03-29-2025 Episodic Other injuries and conditions due to external causes (1 source) Unspecified injury of unspecified ankle, initial encounter; Translations: [Unspecified injury of unspecified ankle, initial encounter] Onset: 08-12-2024 Episodic Other injuries and conditions due to external causes (1 source) Unspecified injury of left ankle, initial encounter; Translations: [Unspecified injury of left ankle, initial encounter] Onset: 09-07-2024 Episodic Other screening for suspected conditions (not mental disorders or infectious disease) (4 sources) Patient encounter status; Translations: [Encounter for screening for malignant neoplasm of colon] 04-23-2023 Episodic Sprains and strains (2 sources) Strain of left Achilles tendon, initial encounter; Translations: [Strain of left Achilles tendon] Onset: 08-12-2024 08-12-2024 Episodic Past or Other Problems Problem Classification Problem Date Documented Da te Episodic/Chronic Open wounds of extremities (1 source) Laceration of index finger; Translations: [Laceration of right index finger without damage to nail, foreign body presence unspecified, initial encounter] Episodic Results Test Name Value Interpretation Reference Range Facility Absolute lymphocyte countOrd ered By: Ulices Diaz on 03-29-2025 Lymphocytes Auto (Unsp spec) [#/Vol] 2.29 10*3/uL 0.83-4.51 [facility] Absolute neutrophil countOrd ered By: Ulices Diaz on 03-29-2025 Neutrophils (Bld) [#/Vol] 4.5 10*3/uL 2.0-7.7 [facility] Anion gap in Serum or Plasma Ordered By: Ulices Diaz on 03-29-2025 Anion gap [Moles/Vol] 13 mmol/L 5-15 [facility] Automated lymphocyte count a s percentage of total leukocytesOrdered By: Ulices Diaz on 03-29-2025 Lymphocytes/100 WBC Auto (Unsp spec) 29.2 % 19-41 [facility] BUN/creatinine ratioOrdered By: Ulices Diaz on 03-29-2025 Urea nitrogen/Creatinine [Mass ratio] 12.1 mg/mg 10-20 [facility] Basophil percentageOrdered B y: Ulices Diaz on 03-29-2025 Basophils/100 WBC (Bld) 0.5 % 0-1 [facility] Carbon dioxide, total [Moles /volume] in Central venous bloodOrdered By: Ulices Diaz on 03-29-2025 CO2 [Moles/Vol] 22.0 mmol/L 21.0-32.0 [facility] Chloride assayOrdered By: Chuck Diaz on 03-29-2025 Chloride [Moles/Vol] 105 mmol/L 98-108 [facility] Eosinophil percentageOrdered By: Ulices Diaz on 03-29-2025 Eosinophils/100 WBC (Bld) 4.1 % 0-5 [facility] Erythrocyte distribution wid th ratioOrdered By: Ulices Diaz on 03-29-2025 Erythrocyte distribution width (RBC) [Ratio] 12.7 % 11.6-14.6 [facility] Erythrocyte distribution wid th standard deviationOrdered By: Ulices Diaz on 03-29-2025 Erythrocyte distribution width (RBC) [Ratio] 38.3 fl 35.1-43.9 [facility] Erythrocyte sedimentation ra teOrdered By: Ulices Diaz on 03-29-2025 ESR (Bld) [Velocity] 17 mm/h 0-20 [facility] Glomerular filtration rate ( GFR) estimation/1.73 sq m using serum, plasma, or whole bOrdered By: Ulices Diaz on 03-29-2025 GFR/1.73 sq M.predicted among non-blacks MDRD (S/P/Bld) [Vol rate/Area] 98 mL/min/{1.73_m2} >60 [facility] Comment on above: mL/min/1.73m2 CKD-EP I Creatinine Equation (2020) Hematocrit Auto (Bld) [Volum e fraction]Ordered By: Ulices Diaz on 03-29-2025 Hematocrit (Bld) [Volume fraction] 38.6 % Low 40-54 [facility] Hemoglobin measurementOrdere d By: Ulices Diaz on 03-29-2025 Hemoglobin (Bld) [Mass/Vol] 13.0 g/dL 13.0-16.5 [facility] Immature granulocytes/100 WB C Auto (Bld)Ordered By: Ulices Diaz on 03-29-2025 Immature granulocytes/100 WBC (Bld) 0.400 % 0.0-0.9 [facility] Comment on above: IG% - Immature Granu locytes (promyelocytes, myelocytes and metamyelocytes) > 1% indicates that a LEFT SHIFT is Present. MCV (mean corpuscular volume ) determinationOrdered By: Ulices Diaz on 03-29-2025 MCV (RBC) [Entitic vol] 83.4 fL 80-94 [facility] Mean corpuscular hemoglobin (MCH) determinationOrdered By: Ulices Diaz on 03-29-2025 MCH (RBC) [Entitic mass] 28.1 pg 27.0-32.0 [facility] Mean corpuscular hemoglobin concentration (MCHC) determinationOrdered By: Ulices Diaz on 03-29-2025 MCHC (RBC) [Mass/Vol] 33.7 g/dL 32-36 [facility] Mean platelet volume determi nationOrdered By: Ulices Diaz on 03-29-2025 Platelet mean volume (Bld) [Entitic vol] 11.1 fL 6.2-12.0 [facility] Monocyte percentageOrdered B y: Ulices Diaz on 03-29-2025 Monocytes/100 WBC (Bld) 8.4 % 0-10 [facility] Neutrophil percentageOrdered By: Ulices Diaz on 03-29-2025 Neutrophils/100 WBC (Bld) 57.4 % 47-70 [facility] Nucleated red blood cell per centageOrdered By: Ulices Diaz on 03-29-2025 Nucleated RBC/100 WBC (Bld) [Ratio] 0 % 0-5 [facility] Platelet countOrdered By: Chuck Diaz on 03-29-2025 Platelets (Bld) [#/Vol] 182 10*3/uL 150-450 [facility] Potassium measurement (mass/ volume)Ordered By: Ulices Diaz on 03-29-2025 Potassium (Unsp spec) [Mass/Vol] 3.9 mmol/L 3.3-5.1 [facility] RBC Auto (Bld) [#/Vol]Ordere d By: Ulices Diaz on 03-29-2025 RBC (Bld) [#/Vol] 4.63 10*6/uL 4.6-6.2 [facility] Serum creatinine measurement (mass/volume)Ordered By: Ulices Diaz on 03-29-2025 Creatinine [Mass/Vol] 0.89 mg/dL 0.70-1.20 [facility] Serum glucose measurement (m ass/volume)Ordered By: Ulices Diaz on 03-29-2025 Glucose [Mass/Vol] 125 mg/dL High 70-99 [facility] Serum or plasma calcium denise urement (mass/volume)Ordered By: Ulices Diaz on 03-29-2025 Calcium [Mass/Vol] 8.9 mg/dL 7.6-11.0 [facility] Serum or plasma urea nitroge n measurement (mass/volume)Ordered By: Ulices Diaz on 03-29-2025 Urea nitrogen [Mass/Vol] 11 mg/dL 4-19 [facility] Sodium levelOrdered By: Ulices Diaz on 03-29-2025 Sodium [Moles/Vol] 139 mmol/L 133-145 [facility] Troponin T.cardiac [Mass/vol ume] in Serum or Plasma by High sensitivity methodOrdered By: Ulices Diaz on 03-29-2025 Troponin T.cardiac High sensitivity method [Mass/Vol] < 6 ng/L <22 [facility] White blood cell (WBC) count Ordered By: Ulices Diaz on 03-29-2025 WBC (Bld) [#/Vol] 7.8 10*3/uL 4.4-11.0 [facility] Ankle min 3 Viewson 08-12-20 Ankle min 3 Views [facility] Imaging Services [address] [place] [address] [id number] Ankle min 3 Views MR#: [id number] Acct: [id number] Name: SUSANA CORTÉS Rep #: [id number] : 1965 M 58 From: Misael Bernardo MD PCP: Dr. Kayden Shearer MD Status: REG CLI Study: Ankle min 3 Views Date of Exam: 08/12/24 Exam# [id number] Ordering Dr: Nick Davis -[id number] STUDY: X-RAY - LEFT ANKLE REASON FOR EXAM: Male, 58 years old. ankle injury TECHNIQUE: 3 view(s) of the ankle. COMPARISON: None. FINDINGS: Normal visualized distal tibia and fibula. Normal medial and lateral malleoli. Normal tibiotalar articulation and ankle mortise. Normal visualized talus and calcaneus. The visualized subtalar, talonavicular, calcaneocuboid and tarsal articulations are normal. Mild bimalleolar soft tissue swelling RAD/Ankle min 3 Views IMPRESSION: Bimalleolar sprain. No acute fracture or dislocation. Electronically Signed: Misael Bernardo MD at 17:23 EST Reading Location ID and State: [address] [place] [address] Tel , Service support , CC: Dr. 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: Signed Normal [facility] Urgent Care Visit Reporton 1 10-12-2023 Urgent Care Visit Report [facility] [address], [address] [place] [address] OFFICE VISIT Date of Service: 08/12/24 MR#: [id number] Acct: [id number] Name: SUSANA CORTÉS Rep #: [id number] : 1965 Provider: DEJAH Irving Age/Sex: 58/M Location: [facility] Status: Signed Intake Vital Signs 05/17/23 07:34 08/12/24 16:38 Height 5 ft 9 in 5 ft 9 in Weight: 280 lb BMI 41.3 BP 150/72 H Blood Pressure Location Lt brachial Position Sitting Respiration 18 Pulse 68 Pulse Source NIBP Temp 98.5 F Temp Source Oral Pulse Oximetry (%) 97 Oxygen Delivery Method room air Intake Visit Reasons: LEFT ANKLE INJURY Chief Complaint: left ankle injury Pediatric Clinical Nurse Specialist Required: No Is patient in pain?: Yes Allergies rosuvastatin (From Crestor) Adverse Reaction (Verified 08/12/24 16:39) HEADACHE Have you fallen in the past year?: Yes Nurse's Note: left ankle injury 5 days ago playing kickball. c/o pain to left distal lower leg and left ankle with swelling. denies additional injuries. [facility] Medical History (Updated 08/12/24 @ 17:08 by Nick POND, PA) Strain of left Achilles tendon CPAP (continuous positive airway pressure) dependence Sleep apnea Wears glasses High cholesterol Restless legs Former smoker Shortness of breath on exertion History of echocardiogram History of stress test Left atrial enlargement Anemia Hyperlipidemia Vitamin D deficiency HUY on CPAP HUY (obstructive sleep apnea) Social History (Updated 04/23/23 @ 11:02 by Rosetta Meyer) current occupational status: employed Smoking Status: Former smoker HPI HPI Chief Complaint: left ankle injury Details: SUSANA CORTÉS, is a 58 M who presents to the office today for initial evaluation status post left posterior ankle strain. Patient was 5 days ago while playing kickball, he was attempting to catch a ball in the outfield and upon jumping landing on left foot but a pain in the posterior aspect of the same. Pain is aggravated touch and with dorsiflexion alleviated with plantarflexion. Range of motion left ankle is otherwise unremarkable. PMH NC. No [id number] products taken to assist. No left knee or foot complaints. No other associated symptoms and no other alleviating/aggrava ting factors. ROS Const Constitutional: No other Exam Const General: cooperative, healthy appearing and no acute distress Orientation: alert and awake Resp Effort Inspection: normal respiratory effort and able to speak in complete sentences Cardio Rate: regular rate Pulses: radial pulses present Skin General: no rashes or lesions noted Neuro General: patient alert, patient awake and patient oriented x3 Cognition: normal cognition Speech: speech normal Extrem General: normal to inspection, full ROM, capillary refill normal and normal exam except as noted (Point tender to palpation left distal Achilles with step off to the same) Psych Appearance: grossly normal Mental Status: mental status grossly normal Mood: congruent mood Affect: normal affect Speech and Movement: speech and movement normal Attitude: cooperative Coding Level of Care Code Off vis,new,level 4 Diagnoses Strain of left Achilles tendon S86.012A Assessment and Plan Assessment and Plan (1) Strain of left Achilles tendon: Status: Acute Plan: - consider tear Left ankle radiographs revealed no acute osseous pathology per my review, pending radiologist interpretation time patient discharge. Isolation boot as applied/instructed today. [id number] NSAIDs, rest, elevation as instructed today. Podiatry referral placed today; make appointment for first available. [facility]-up with the [facility] on an as-needed basis only. Patient states acknowledging understanding all the above. This note was generated with [employer] dictation software. It may contain incorrect words, spelling, and punctuation that were not noted in checking the note before signing. Orders: Orders Ankle min 3 Views Today S99.919A - Unspecified injury of unspecified ankle, initial encounter Referrals Podiatry S86.012A - Strain of left Achilles tendon, initial encounter Clinical Quality Measures Falls Risk Screening/Assistive Devices Have you fallen in the past year?: Yes 08/12/241757 Date Nick Baron Signature: Date (if applicable) CC: Normal [facility] Absolute lymphocyte countOrd ered By: Kayden Shearer on 09-19-2023 Lymphocytes Auto (Unsp spec) [#/Vol] 2.23 10*3/uL 0.83-4.51 [facility] Basophil percentageOrdered B y: Kayden Shearer on 09-19-2023 Basophils/100 WBC (Bld) 0.5 % 0-1 [facility] Bilirubin [Mass/Vol] 0.40 mg/dL 0.20-1.00 [facility] Comment on above: For patients on eltr ombopag therapy, use of Dimension [place] TBIL is not recommended. Chloride [Moles/Vol] 109 mmol/L 98-107 [facility] Cholesterol [Mass/Vol] 195 mg/dL <200 [facility] Comment on above: <200 mg/dL Desirable 200-240 mg/dL Borderline >240 mg/dL High Risk Eosinophils/100 WBC (Bld) 2.0 % 0-5 [facility] Glucose [Mass/Vol] 165 mg/dL 74-106 [facility] Comment on above: Fasting Glucose resu lt greater than or equal to 126 mg/dL suggests DIABETES MELLITUS per A.D.A. criteria. Neutrophils (Bld) [#/Vol] 4.6 10*3/uL 2.0-7.7 [facility] Neutrophils/100 WBC (Bld) 60.7 % 47-70 [facility] Potassium [Moles/Vol] 3.7 mmol/L 3.5-5.1 [facility] Protein [Mass/Vol] 7.1 g/dL 6.4-8.2 [facility] Sodium [Moles/Vol] 140 mmol/L 136-145 [facility] Triglyceride [Mass/Vol] 115 mg/dL <199 [facility] Comment on above: The drugs N-Acetylcy steine and Metamizole may falsely depress this assay.Serum Triglycerides Reference Interval Normal <150 mg/dL Borderline high 150 - 199 mg/dL High 200 - 499 mg/dL Very High > or = 500 mg/dL WBC (Bld) [#/Vol] 7.6 10*3/uL 4.4-11.0 [facility] Blood erythrocytes count (nu mber/volume)Ordered By: Kayden Shearer on 09-19-2023 RBC (Bld) [#/Vol] 4.72 10*6/uL 4.6-6.2 [facility] Blood hemoglobin measurement (mass/volume)Ordered By: Kayden Shearer on 09-19-2023 Hemoglobin (Bld) [Mass/Vol] 12.9 g/dL 13.0-16.5 [facility] Blood lymphocytes/100 leukoc ytesOrdered By: Kayden Shearer on 09-19-2023 Lymphocytes/100 WBC (Bld) 29.5 % 19-41 [facility] Blood monocytes/100 leukocyt esOrdered By: Kayden Shearer on 09-19-2023 Monocytes/100 WBC (Bld) 7.0 % 0-10 [facility] Blood platelet mean volumeOr dered By: Kayden Shearer on 09-19-2023 Platelet mean volume (Bld) [Entitic vol] 10.9 fL 6.2-12.0 [facility] CBC W/Diff, Automatedon 09-06 Absolute Lymph 2.23 X10 3/uL Normal 0.83-4.51 [facility] Comment on above: Order Comment: Order Date: 03/27/23 Order Info: 0184-1 - CBCD Performed By: #### L 100.0100, L506.1000, L500.4050, L500.4100, L501.9910 #### [facility] [address] [place], [address] Absolute Neut 4.6 X10 3/uL Normal 2.0-7.7 [facility] Comment on above: Order Comment: Order Date: 03/27/23 Order Info: 0184-1 - CBCD Performed By: #### L 100.0100, L506.1000, L500.4050, L500.4100, L501.9910 #### [facility] [address] [place], [address] Basophils/100 WBC (Bld) 0.5 % Normal 0-1 [facility] Comment on above: Order Comment: Order Date: 03/27/23 Order Info: 0184- - CBCD Performed By: #### L 100.0100, L506.1000, L500.4050, L500.4100, L501.9910 #### [facility] [address] [place], [address] Eosinophils/100 WBC (Bld) 2.0 % Normal 0-5 [facility] Comment on above: Order Comment: Order Date: 03/27/23 Order Info: 0184-1 - CBCD Performed By: #### L 100.0100, L506.1000, L500.4050, L500.4100, L501.9910 #### [facility] [address] [place], [address] Erythrocyte distribution width (RBC) [Ratio] 12.1 % Normal 11.6-14.6 [facility] Comment on above: Order Comment: Order Date: 03/27/23 Order Info: 0184-1 - CBCD Performed By: #### L 100.0100, L506.1000, L500.4050, L500.4100, L501.9910 #### [facility] [address] [place], [address] Hematocrit (Bld) [Volume fraction] 39.6 % Low 40-54 [facility] Comment on above: Order Comment: Order Date: 03/27/23 Order Info: 0184-1 - CBCD Performed By: #### L 100.0100, L506.1000, L500.4050, L500.4100, L501.9910 #### [facility] [address] [place], [address] Hemoglobin (Bld) [Mass/Vol] 12.9 g/dL Low 13.0-16.5 [facility] Comment on above: Order Comment: Order Date: 03/27/23 Order Info: 0184- - CBCD Performed By: #### L 100.0100, L506.1000, L500.4050, L500.4100, L501.9910 #### [facility] [address] [place], [address] IG% 0.300 Normal 0.0-0.9 [facility] Comment on above: Order Comment: Order Date: 03/27/23 Order Info: 0184- - CBCD Result Comment: IG% - Immature Granulocytes (promyelocytes, myelocytes and metamyelocytes) > 1% indicates that a LEFT SHIFT is Present. Performed By: #### L 100.0100, L506.1000, L500.4050, L500.4100, L501.9910 #### [facility] [address] [place], [address] Lymphocytes/100 WBC (Bld) 29.5 % Normal 19-41 [facility] Comment on above: Order Comment: Order Date: 03/27/23 Order Info: 0184-1 - CBCD Performed By: #### L 100.0100, L506.1000, L500.4050, L500.4100, L501.9910 #### [facility] [address] [place], [address] MCH (RBC) [Entitic mass] 27.3 pg Normal 27.0-32.0 [facility] Comment on above: Order Comment: Order Date: 03/27/23 Order Info: 0184-1 - CBCD Performed By: #### L 100.0100, L506.1000, L500.4050, L500.4100, L501.9910 #### [facility] [address] [place], [address] MCHC (RBC) [Mass/Vol] 32.6 g/dL Normal 32-36 [facility] Comment on above: Order Comment: Order Date: 03/27/23 Order Info: 0184-1 - CBCD Performed By: #### L 100.0100, L506.1000, L500.4050, L500.4100, L501.9910 #### [facility] [address] [place], [address] MCV (RBC) [Entitic vol] 83.9 fL Normal 80-94 [facility] Comment on above: Order Comment: Order Date: 03/27/23 Order Info: 0184- - CBCD Performed By: #### L 100.0100, L506.1000, L500.4050, L500.4100, L501.9910 #### [facility] [address] [place], [address] Monocytes/100 WBC (Bld) 7.0 % Normal 0-10 [facility] Comment on above: Order Comment: Order Date: 03/27/23 Order Info: 0184- - CBCD Performed By: #### L 100.0100, L506.1000, L500.4050, L500.4100, L501.9910 #### [facility] [address] [place], [address] Neutrophils/100 WBC (Bld) 60.7 % Normal 47-70 [facility] Comment on above: Order Comment: Order Date: 03/27/23 Order Info: 0184-1 - CBCD Performed By: #### L 100.0100, L506.1000, L500.4050, L500.4100, L501.9910 #### [facility] [address] [place], [address] Nucleated RBC (Bld) [#/Vol] 0 10*3/uL Normal 0-5 [facility] Comment on above: Order Comment: Order Date: 03/27/23 Order Info: 0184-1 - CBCD Performed By: #### L 100.0100, L506.1000, L500.4050, L500.4100, L501.9910 #### [facility] [address] [place], [address] Platelet mean volume (Bld) [Entitic vol] 10.9 fL Normal 6.2-12.0 [facility] Comment on above: Order Comment: Order Date: 03/27/23 Order Info: 0184- - CBCD Performed By: #### L 100.0100, L506.1000, L500.4050, L500.4100, L501.9910 #### [facility] [address] [place], [address] Platelets (Bld) [#/Vol] 180 10*3/uL Normal 150-450 [facility] Comment on above: Order Comment: Order Date: 03/27/23 Order Info: 0184- - CBCD Performed By: #### L 100.0100, L506.1000, L500.4050, L500.4100, L501.9910 #### [facility] [address] [place], [address] RBC (Bld) [#/Vol] 4.72 10*6/uL Normal 4.6-6.2 [facility] Comment on above: Order Comment: Order Date: 03/27/23 Order Info: 0184-1 - CBCD Performed By: #### L 100.0100, L506.1000, L500.4050, L500.4100, L501.9910 #### [facility] [address] [place], [address] RDW SD 36.8 fl Normal 35.1-43.9 [facility] Comment on above: Order Comment: Order Date: 03/27/23 Order Info: 0184-1 - CBCD Performed By: #### L 100.0100, L506.1000, L500.4050, L500.4100, L501.9910 #### [facility] [facility] [address] [place], [address] WBC (Bld) [#/Vol] 7.6 10*3/uL Normal 4.4-11.0 [facility] Comment on above: Order Comment: Order Date: 03/27/23 Order Info: [id number] - CBCD Performed By: #### L 100.0100, L506.1000, L500.4050, L500.4100, L501.9910 #### [facility] [address] [place], [address] Comprehensive Metabolic Prof [facility] 09-19-2023 Albumin [Mass/Vol] 3.5 g/dL Normal 3.2-5.0 [facility] Comment on above: Order Comment: Order Date: 03/27/23 Order Info: [id number] - CMP Order Info: [id number] - LIPID Order Info: [id number] - PSA Performed By: #### L 100.0100, L506.1000, L500.4050, L500.4100, L501.9910 #### [facility] [address] [place], [address] Albumin/Globulin [Mass ratio] 1.0 {ratio} Normal 0.9-2.4 [facility] Comment on above: Order Comment: Order Date: 03/27/23 Order Info: [id number] - CMP Order Info: [id number] - LIPID Order Info: [id number] - PSA Performed By: #### L 100.0100, L506.1000, L500.4050, L500.4100, L501.9910 #### [facility] [address] [place], [address] ALK P 68 U/L Normal 45-117 [facility] Comment on above: Order Comment: Order Date: 03/27/23 Order Info: 07- - CMP Order Info: [id number] - LIPID Order Info: [id number] - PSA Performed By: #### L 100.0100, L506.1000, L500.4050, L500.4100, L501.9910 #### [facility] [address] [place], [address] ALT [Catalytic activity/Vol] 29 U/L Normal 16-61 [facility] Comment on above: Order Comment: Order Date: 03/27/23 Order Info: [id number] - CMP Order Info: [id number] - LIPID Order Info: [id number] - PSA Performed By: #### L 100.0100, L506.1000, L500.4050, L500.4100, L501.9910 #### [facility] [address] [place], [address] AST [Catalytic activity/Vol] 19 U/L Normal 15-37 [facility] Comment on above: Order Comment: Order Date: 03/27/23 Order Info: [id number] - CMP Order Info: [id number] - LIPID Order Info: [id number] - PSA Performed By: #### L 100.0100, L506.1000, L500.4050, L500.4100, L501.9910 #### [facility] [address] [place], [address] Bilirubin [Mass/Vol] 0.40 mg/dL Normal 0.20-1.00 [facility] Comment on above: Order Comment: Order Date: 03/27/23 Order Info: 07- - CMP Order Info: [id number] - LIPID Order Info: [id number] - PSA Result Comment: For patients on eltrombopag therapy, use of Dimension [place] TBIL is not recommended. Performed By: #### L 100.0100, L506.1000, L500.4050, L500.4100, L501.9910 #### [facility] [address] [place], [address] BUN/CRE 15.3 RATIO Normal 10-20 [facility] Comment on above: Order Comment: Order Date: 03/27/23 Order Info: [id number]- - CMP Order Info: [id number] - LIPID Order Info: [id number] - PSA Performed By: #### L 100.0100, L506.1000, L500.4050, L500.4100, L501.9910 #### [facility] [address] [place], [address] CA,Total 8.2 mg/dL Low 8.5-10.1 [facility] Comment on above: Order Comment: Order Date: 03/27/23 Order Info: [id number] - CMP Order Info: - LIPID Order Info: [id number] - PSA Performed By: #### L 100.0100, L506.1000, L500.4050, L500.4100, L501.9910 #### [facility] [address] [place], [address] Chloride [Moles/Vol] 109 mmol/L High 98-107 [facility] Comment on above: Order Comment: Order Date: 03/27/23 Order Info: 07 - CMP Order Info: [id number] - LIPID Order Info: [id number] - PSA Performed By: #### L 100.0100, L506.1000, L500.4050, L500.4100, L501.9910 #### [facility] [address] [place], [address] CO2 [Moles/Vol] 23.0 mmol/L Normal 21.0-32.0 [facility] Comment on above: Order Comment: Order Date: 03/27/23 Order Info: 07 - CMP Order Info: [id number] - LIPID Order Info: [id number] - PSA Performed By: #### L 100.0100, L506.1000, L500.4050, L500.4100, L501.9910 #### [facility] [address] [place], [address] Creatinine [Mass/Vol] 0.98 mg/dL Normal 0.70-1.30 [facility] Comment on above: Order Comment: Order Date: 03/27/23 Order Info: [id number] - CMP Order Info: [id number] - LIPID Order Info: [id number] - PSA Result Comment: The validity of the calculated GFR GFRAA in patients over 70 years has not been determined. Clinical correlation is essential. Performed By: #### L 100.0100, L506.1000, L500.4050, L500.4100, L501.9910 #### [facility] [address] [place], [address] EST GFR - AA 100 mL/min Normal >60 [facility] Comment on above: Order Comment: Order Date: 03/27/23 Order Info: [id number] - CMP Order Info: [id number] - LIPID Order Info: [id number] - PSA Result Comment: Afri can Afghan GFR Calc Performed By: #### L 100.0100, L506.1000, L500.4050, L500.4100, L501.9910 #### [facility] [address] [place], [address] GAP 8 Normal 5-15 [facility] Comment on above: Order Comment: Order Date: 03/27/23 Order Info: [id number] - CMP Order Info: [id number] - LIPID Order Info: [id number] - PSA Performed By: #### L 100.0100, L506.1000, L500.4050, L500.4100, L501.9910 #### [facility] [address] [place], [address] GFR/1.73 sq M.predicted among non-blacks MDRD (S/P/Bld) [Vol rate/Area] 83 mL/min/{1.73_m2} Normal >60 [facility] Comment on above: Order Comment: Order Date: 03/27/23 Order Info: [id number] - CMP Order Info: - LIPID Order Info: [id number] - PSA Result Comment: Non- GFR Calc Performed By: #### L 100.0100, L506.1000, L500.4050, L500.4100, L501.9910 #### [facility] [address] [place], [address] Globulin (S) [Mass/Vol] 3.6 g/dL Normal 2.2-4.2 [facility] Comment on above: Order Comment: Order Date: 03/27/23 Order Info: [id number] - CMP Order Info: - LIPID Order Info: [id number] - PSA Performed By: #### L 100.0100, L506.1000, L500.4050, L500.4100, L501.9910 #### [facility] [address] [place], [address] Glucose [Mass/Vol] 165 mg/dL High 74-106 [facility] Comment on above: Order Comment: Order Date: 03/27/23 Order Info: [id number] - CMP Order Info: - LIPID Order Info: [id number] - PSA Result Comment: Fast ing Glucose result greater than or equal to 126 mg/dL suggests DIABETES MELLITUS per A.D.A. criteria. Performed By: #### L 100.0100, L506.1000, L500.4050, L500.4100, L501.9910 #### [facility] [address] [place], [address] Potassium [Moles/Vol] 3.7 mmol/L Normal 3.5-5.1 [facility] Comment on above: Order Comment: Order Date: 03/27/23 Order Info: [id number] - CMP Order Info: [id number] - LIPID Order Info: [id number] - PSA Performed By: #### L 100.0100, L506.1000, L500.4050, L500.4100, L501.9910 #### [facility] [address] [place], [address] Sodium [Moles/Vol] 140 mmol/L Normal 136-145 [facility] Comment on above: Order Comment: Order Date: 03/27/23 Order Info: [id number] - CMP Order Info: [id number] - LIPID Order Info: [id number] - PSA Performed By: #### L 100.0100, L506.1000, L500.4050, L500.4100, L501.9910 #### [facility] [address] [place], [place], [id number] T PROT 7.1 g/dL Normal 6.4-8.2 [facility] Comment on above: Order Comment: Order Date: 03/27/23 Order Info: [id number] - CMP Order Info: [id number] - LIPID Order Info: [id number] - PSA Performed By: #### L 100.0100, L506.1000, L500.4050, L500.4100, L501.9910 #### [facility] [address] [facility] [address] [place], [place], [address] Urea nitrogen [Mass/Vol] 15 mg/dL Normal 7-18 [facility] Comment on above: Order Comment: Order Date: 03/27/23 Order Info: [id number] - CMP Order Info: [id number] - LIPID Order Info: [id number] PSA Performed By: #### L 100.0100, L506.1000, L500.4050, L500.4100, L501.9910 #### [facility] [address] [place], [place], [address] Determination of erythrocyte mean corpuscular volume (MCV)Ordered By: Kayden Shearer on 09-19-2023 MCV (RBC) [Entitic vol] 83.9 fL 80-94 [facility] Hematocrit Auto (Bld) [Volum e fraction]Ordered By: Kayden Shearer on 09-19-2023 Hematocrit (Bld) [Volume fraction] 39.6 % 40-54 [facility] - Chemistry and C hemistry - challengeOrdered By: Kayden Shearer on 09-19-2023 ALP [Catalytic activity/Vol] 68 U/L 45-117 [facility] ALT [Catalytic activity/Vol] 29 U/L 16-61 [facility] CO2 [Moles/Vol] 23.0 mmol/L 21.0-32.0 [facility] Globulin (S) [Mass/Vol] 3.6 g/dL 2.2-4.2 [facility] Urea nitrogen/Creatinine [Mass ratio] 15.3 mg/mg 10-20 [facility] - Hematology and Cell countsOrdered By: Kayden Shearer on 09-19-2023 Erythrocyte distribution width (RBC) [Entitic vol] 36.8 fL 35.1-43.9 [facility] Erythrocyte distribution width (RBC) [Ratio] 12.1 % 11.6-14.6 [facility] Immature granulocytes/100 WBC (Bld) 0.300 % 0.0-0.9 [facility] Comment on above: IG% - Immature Granu locytes (promyelocytes, myelocytes and metamyelocytes) > 1% indicates that a LEFT SHIFT is Present. MCH (RBC) [Entitic mass] 27.3 pg 27.0-32.0 [facility] Nucleated RBC/100 WBC (Bld) [Ratio] 0 % 0-5 [facility] Lipid Profileon 09-19-2023 Cholesterol [Mass/Vol] 195 mg/dL Normal 200 [facility] Comment on above: Order Comment: Order Date: 03/27/23 Order Info: [id number] - CMP Order Info: [id number] - LIPID Order Info: [id number] - PSA Result Comment: <200 mg/dL Desirable 200-240 mg/dL Borderline >240 mg/dL High Risk Performed By: #### L 100.0100, L506.1000, L500.4050, L500.4100, L501.9910 #### [facility] [address] [place], [address] Cholesterol in HDL [Mass/Vol] 39 mg/dL Low [facility] Comment on above: Order Comment: Order Date: 03/27/23 Order Info: [id number] - CMP Order Info: - LIPID Order Info: [id number] - PSA Result Comment: The drugs N-Acetylcysteine and Metamizole may falsely depress this assay. Reference Range HDL <40 mg/dL Low HDL Cholesterol HDL >or= 60 mg/dL High HDL Cholesterol Performed By: #### L 100.0100, L506.1000, L500.4050, L500.4100, L501.9910 #### [facility] [address] [place], [address] Cholesterol in LDL [Mass/Vol] 133 mg/dL High 0-130 [facility] Comment on above: Order Comment: Order Date: 03/27/23 Order Info: [id number] - CMP Order Info: - LIPID Order Info: [id number] - PSA Performed By: #### L 100.0100, L506.1000, L500.4050, L500.4100, L501.9910 #### [facility] [address] [place], [address] Cholesterol in VLDL [Mass/Vol] 23 mg/dL Normal 5-40 [facility] Comment on above: Order Comment: Order Date: 03/27/23 Order Info: [id number] - CMP Order Info: - LIPID Order Info: [id number] - PSA Performed By: #### L 100.0100, L506.1000, L500.4050, L500.4100, L501.9910 #### [facility] [address] [place], [address] Triglyceride [Mass/Vol] 115 mg/dL Normal [facility] Comment on above: Order Comment: Order Date: 03/27/23 Order Info: 07 - CMP Order Info: - LIPID Order Info: [id number] - PSA Result Comment: The drugs N-Acetylcysteine and Metamizole may falsely depress this assay. Serum Triglycerides Reference Interval Normal <150 mg/dL Borderline high 150 - 199 mg/dL High 200 - 499 mg/dL Very High > or = 500 mg/dL Performed By: #### L 100.0100, L506.1000, L500.4050, L500.4100, L501.9910 #### [facility] [address] [place], [address] MCHC Auto (RBC) [Mass/Vol]Or dered By: Kayden Shearer on 09-19-2023 MCHC (RBC) [Mass/Vol] 32.6 g/dL 32-36 [facility] No Panel InformationOrdered By: Kayden Shearer on 09-19-2023 Estimated GFR (MDRD) Amer 100 mL/min >60 [facility] Comment on above: GFR Calc Estimated GFR (MDRD) Non-Af Amer 83 mL/min >60 [facility] Comment on above: Non- GFR Calc Prostate Specific Antigen Screen 1.23 ng/mL 0.00-4.00 [facility] Comment on above: This test was perfor med using the TPSA assay method for [employer] chemistry system. Values obtained with differentassay methods cannot be used interchangably.When changing PSA assays in the course of monitoring apatient, additional sequential testing should be carriedout to confirm baseline values. Vitamin D 25-Hydroxy 31.4 ng/mL [facility] Comment on above: Vitamin D 25([place]) Sta tus Range Deficiency <20 ng/mL (50nmol/L) Insufficiency 20 - 30 ng/mL (50 - 75 nmol/L) Sufficiency 30 - 100 ng/mL (75 - 250 nmol/L) Toxicity >100 ng/mL (>250 nmol/L) PSA,Total - Annual Screenon 09-19-2023 PSA,TOT SCREEN 1.23 ng/mL Normal 0.00-4.00 [facility] Comment on above: Order Comment: Order Date: 03/27/23 Order Info: [id number] - CMP Order Info: [id number] - LIPID Order Info: [id number] - PSA Result Comment: This test was performed using the TPSA assay method for the [employer] chemistry system. Values obtained with different assay methods cannot be used interchangably. When changing PSA assays in the course of monitoring a patient, additional sequential testing should be carried out to confirm baseline values. Performed By: #### L 100.0100, L506.1000, L500.4050, L500.4100, L501.9910 #### [facility] [address] [place], [address] Platelets bldOrdered By: Oumar Shearer on 09-19-2023 Platelets (Bld) [#/Vol] 180 10*3/uL 150-450 [facility] Serum or plasma albumin denise urement (mass/volume)Ordered By: Kayden Shearer on 09-19-2023 Albumin [Mass/Vol] 3.5 g/dL 3.2-5.0 [facility] Serum or plasma albumin/glob ulin mass ratioOrdered By: Kayden Shearer on 09-19-2023 Albumin/Globulin [Mass ratio] 1.0 {ratio} 0.9-2.4 [facility] Serum or plasma calcium denise urement (mass/volume)Ordered By: Kayden Shearer on 09-19-2023 Calcium [Mass/Vol] 8.2 mg/dL 8.5-10.1 [facility] Serum or plasma cholesterol in HDL measurement (mass/volume)Ordered By: Kayden Shearer on 09-19-2023 Cholesterol in HDL [Mass/Vol] 39 mg/dL >40 [facility] Comment on above: The drugs N-Acetylcy steine and Metamizole may falsely depress this assay. Reference Range HDL <40 mg/dL Low HDL Cholesterol HDL >or= 60 mg/dL High HDL Cholesterol Serum or plasma cholesterol in VLDL measurement (mass/volume)Ordered By: Kayden Shearer on 09-19-2023 Cholesterol in VLDL [Mass/Vol] 23 mg/dL 5-40 [facility] Serum or plasma creatinine m easurement (mass/volume)Ordered By: Kayden Shearer on 09-19-2023 Creatinine [Mass/Vol] 0.98 mg/dL 0.70-1.30 [facility] Comment on above: The validity of the calculated GFR & GFRAA in patients over 70 years has not been determined. Clinical correlation is essential. Serum or plasma low density lipoprotein (LDL) cholesterol measurement (mass/volume)Ordered By: Kayden Shearer on 09-19-2023 Cholesterol in LDL [Mass/Vol] 133 mg/dL 0-130 [facility] Serum or plasma urea nitroge n measurement (mass/volume)Ordered By: Kayden Shearer on 09-19-2023 Urea nitrogen [Mass/Vol] 15 mg/dL 7-18 [facility] Thin prep Papanicolaou smear with manual screeningOrdered By: Kayden Shearer on 09-19-2023 Thin prep Papanicolaou smear with manual screening 19 U/L 15-37 [facility] Thin prep Papanicolaou smear with manual screening 8 5-15 [facility] Vitamin D,25 Hydroxyon 09-19 Vitamin D 25-OH 31.4 ng/mL Normal [facility] Comment on above: Order Comment: Order Date: 03/27/23 Order Info: [id number] - [id number] Result Comment: Sunshine min D 25(OH) Status Range Deficiency <20 ng/mL (50nmol/L) Insufficiency 20 - 30 ng/mL (50 - 75 nmol/L) Sufficiency 30 - 100 ng/mL (75 - 250 nmol/L) Toxicity >100 ng/mL (>250 nmol/L) Performed By: #### L 100.0100, L506.1000, L500.4050, L500.4100, L501.9910 #### [facility] [address] [place], [address] Absolute lymphocyte countOrd ered By: Kayden Shearer on 03-21-2023 Lymphocytes Auto (Unsp spec) [#/Vol] 2.40 10*3/uL 0.83-4.51 [facility] Basophil percentageOrdered B y: Kayden Shearer on 03-21-2023 Basophils/100 WBC (Bld) 0.4 % 0-1 [facility] Bilirubin [Mass/Vol] 0.50 mg/dL 0.20-1.00 [facility] Comment on above: For patients on eltr ombopag therapy, use of Dimension [place] TBIL is not recommended. Chloride [Moles/Vol] 111 mmol/L 98-107 [facility] Cholesterol [Mass/Vol] 169 mg/dL <200 [facility] Comment on above: <200 mg/dL Desirable 200-240 mg/dL Borderline >240 mg/dL High Risk Eosinophils/100 WBC (Bld) 2.9 % 0-5 [facility] Glucose [Mass/Vol] 134 mg/dL 74-106 [facility] Comment on above: Fasting Glucose resu lt greater than or equal to 126 mg/dL suggests DIABETES MELLITUS per A.D.A. criteria. Neutrophils (Bld) [#/Vol] 4.2 10*3/uL 2.0-7.7 [facility] Neutrophils/100 WBC (Bld) 56.7 % 47-70 [facility] Potassium [Moles/Vol] 3.9 mmol/L 3.5-5.1 [facility] Protein [Mass/Vol] 6.7 g/dL 6.4-8.2 [facility] Sodium [Moles/Vol] 141 mmol/L 136-145 [facility] Triglyceride [Mass/Vol] 82 mg/dL <199 [facility] Comment on above: The drugs N-Acetylcy steine and Metamizole may falsely depress this assay.Serum Triglycerides Reference Interval Normal <150 mg/dL Borderline high 150 - 199 mg/dL High 200 - 499 mg/dL Very High > or = 500 mg/dL WBC (Bld) [#/Vol] 7.4 10*3/uL 4.4-11.0 [facility] Blood erythrocytes count (nu mber/volume)Ordered By: Kayden Shearer on 03-21-2023 RBC (Bld) [#/Vol] 4.59 10*6/uL 4.6-6.2 [facility] Blood hemoglobin measurement (mass/volume)Ordered By: Kayden Shearer on 03-21-2023 Hemoglobin (Bld) [Mass/Vol] 12.7 g/dL 13.0-16.5 [facility] Blood lymphocytes/100 leukoc ytesOrdered By: Kayden Shearer on 03-21-2023 Lymphocytes/100 WBC (Bld) 32.6 % 19-41 [facility] Blood monocytes/100 leukocyt esOrdered By: Kayden Shearer on 03-21-2023 Monocytes/100 WBC (Bld) 7.1 % 0-10 [facility] Blood platelet mean volumeOr dered By: Kayden Shearer on 03-21-2023 Platelet mean volume (Bld) [Entitic vol] 11.2 fL 6.2-12.0 [facility] Determination of erythrocyte mean corpuscular volume (MCV)Ordered By: Kayden Shearer on 03-21-2023 MCV (RBC) [Entitic vol] 86.1 fL 80-94 [facility] Hematocrit Auto (Bld) [Volum e fraction]Ordered By: Kayden Shearer on 03-21-2023 Hematocrit (Bld) [Volume fraction] 39.5 % 40-54 [facility] Iron measurement (mass/mass) Ordered By: Kayden Shearer on 03-21-2023 Iron (Unsp spec) [Mass/Mass] 77 ug/dL 65-175 [facility] - Chemistry and C hemistry - challengeOrdered By: Kayden Shearer on 03-21-2023 ALP [Catalytic activity/Vol] 52 U/L 45-117 [facility] ALT [Catalytic activity/Vol] 30 U/L 16-61 [facility] CO2 [Moles/Vol] 22.0 mmol/L 21.0-32.0 [facility] Cobalamin (Vitamin B12) [Mass/Vol] 330 pg/mL 211-911 [facility] Globulin (S) [Mass/Vol] 3.3 g/dL 2.2-4.2 [facility] Urea nitrogen/Creatinine [Mass ratio] 15.7 mg/mg 10-20 [facility] - Hematology and Cell countsOrdered By: Kayden Shearer on 03-21-2023 Erythrocyte distribution width (RBC) [Entitic vol] 38.3 fL 35.1-43.9 [facility] Erythrocyte distribution width (RBC) [Ratio] 12.2 % 11.6-14.6 [facility] Immature granulocytes/100 WBC (Bld) 0.300 % 0.0-0.9 [facility] Comment on above: IG% - Immature Granu locytes (promyelocytes, myelocytes and metamyelocytes) > 1% indicates that a LEFT SHIFT is Present. MCH (RBC) [Entitic mass] 27.7 pg 27.0-32.0 [facility] Nucleated RBC/100 WBC (Bld) [Ratio] 0 % 0-5 [facility] MCHC Auto (RBC) [Mass/Vol]Or dered By: Kayden Shearer on 03-21-2023 MCHC (RBC) [Mass/Vol] 32.2 g/dL 32-36 [facility] No Panel InformationOrdered By: Kayden Shearer on 03-21-2023 Estimated GFR (MDRD) Amer 96 mL/min >60 [facility] Comment on above: GFR Calc Estimated GFR (MDRD) Non-Af Amer 79 mL/min >60 [facility] Comment on above: Non- GFR Calc Total Iron Binding Capacity 285 ug/dL 250-450 [facility] Vitamin D 25-Hydroxy 37.7 ng/mL [facility] Comment on above: Vitamin D 25([place]) Sta tus Range Deficiency <20 ng/mL (50nmol/L) Insufficiency 20 - 30 ng/mL (50 - 75 nmol/L) Sufficiency 30 - 100 ng/mL (75 - 250 nmol/L) Toxicity >100 ng/mL (>250 nmol/L) Platelets bldOrdered By: Oumar Shearer on 03-21-2023 Platelets (Bld) [#/Vol] 175 10*3/uL 150-450 [facility] Serum or plasma albumin denise urement (mass/volume)Ordered By: Kayden Shearer on 03-21-2023 Albumin [Mass/Vol] 3.4 g/dL 3.2-5.0 [facility] Serum or plasma albumin/glob ulin mass ratioOrdered By: Kayden Shearer on 03-21-2023 Albumin/Globulin [Mass ratio] 1.0 {ratio} 0.9-2.4 [facility] Serum or plasma calcium denise urement (mass/volume)Ordered By: Kayden Shearer on 03-21-2023 Calcium [Mass/Vol] 8.5 mg/dL 8.5-10.1 [facility] Serum or plasma cholesterol in HDL measurement (mass/volume)Ordered By: Kayden Shearer on 03-21-2023 Cholesterol in HDL [Mass/Vol] 35 mg/dL >40 [facility] Comment on above: The drugs N-Acetylcy steine and Metamizole may falsely depress this assay. Reference Range HDL <40 mg/dL Low HDL Cholesterol HDL >or= 60 mg/dL High HDL Cholesterol Serum or plasma cholesterol in VLDL measurement (mass/volume)Ordered By: Kayden Shearer on 03-21-2023 Cholesterol in VLDL [Mass/Vol] 16 mg/dL 5-40 [facility] Serum or plasma creatinine m easurement (mass/volume)Ordered By: Kayden Shearer on 03-21-2023 Creatinine [Mass/Vol] 1.02 mg/dL 0.70-1.30 [facility] Comment on above: The validity of the calculated GFR & GFRAA in patients over 70 years has not been determined. Clinical correlation is essential. Serum or plasma ferritin jordon surement (mass/volume)Ordered By: Kayden Shearer on 03-21-2023 Ferritin [Mass/Vol] 145 ng/mL 26-388 [facility] Serum or plasma iron saturat ion measurement (mass fraction)Ordered By: Kayden Shearer on 03-21-2023 Iron saturation [Mass fraction] 27.0 % 15.0-55.0 [facility] Serum or plasma low density lipoprotein (LDL) cholesterol measurement (mass/volume)Ordered By: Kayden Shearer on 03-21-2023 Cholesterol in LDL [Mass/Vol] 118 mg/dL 0-130 [facility] Serum or plasma urea nitroge n measurement (mass/volume)Ordered By: Kayden Shearer on 03-21-2023 Urea nitrogen [Mass/Vol] 16 mg/dL 7-18 [facility] Thin prep Papanicolaou smear with manual screeningOrdered By: Kayden Shearer on 03-21-2023 Thin prep Papanicolaou smear with manual screening 18 U/L 15-37 [facility] Thin prep Papanicolaou smear with manual screening 8 5-15 [facility] Whole blood hemoglobin A1c/t otal hemoglobin ratio (mass fraction)Ordered By: Kayden Shearer on 03-21-2023 HbA1c (Bld) [Mass fraction] 5.6 % 3.8-5.6 [facility] Comment on above: Normal < 5.7 % Predi abetic 5.7 - 6.4 % Diabetic >or= 6.5 % Please note range changes. Absolute lymphocyte counton 09-11-2022 Lymphocytes Auto (Unsp spec) [#/Vol] 2.29 10*3/uL 0.83-4.51 [facility] Work Phone: [phone] Basophil percentageon 2021 Basophils/100 WBC (Bld) 0.4 % 0-1 [facility] Work Phone: [phone] Bilirubin [Mass/Vol] 0.50 mg/dL 0.20-1.00 [facility] Work Phone: [phone] Comment on above: For patients on eltr ombopag therapy, use of Dimension [place] TBIL is not recommended. Chloride [Moles/Vol] 106 mmol/L 98-107 [facility] Work Phone: Cholesterol [Mass/Vol] 209 mg/dL <200 [facility] Work Phone: [phone] Comment on above: <200 mg/dL Desirable 200-240 mg/dL Borderline >240 mg/dL High Risk Eosinophils/100 WBC (Bld) 2.6 % 0-5 [facility] Work Phone: [phone] Glucose [Mass/Vol] 95 mg/dL 74-106 [facility] Work Phone: [phone] Neutrophils (Bld) [#/Vol] 4.8 10*3/uL 2.0-7.7 [facility] Work Phone: [phone] Neutrophils/100 WBC (Bld) 59.8 % 47-70 [facility] Work Phone: [phone] Potassium [Moles/Vol] 4.0 mmol/L 3.5-5.1 [facility] Work Phone: [phone] Protein [Mass/Vol] 6.8 g/dL 6.4-8.2 [facility] Work Phone: [phone] Sodium [Moles/Vol] 140 mmol/L 136-145 [facility] Work Phone: [phone] Triglyceride [Mass/Vol] 101 mg/dL <199 [facility] Work Phone: [phone] Comment on above: The drugs N-Acetylcy steine and Metamizole may falsely depress this assay.Serum Triglycerides Reference Interval Normal <150 mg/dL Borderline high 150 - 199 mg/dL High 200 - 499 mg/dL Very High > or = 500 mg/dL WBC (Bld) [#/Vol] 8.0 10*3/uL 4.4-11.0 [facility] Work Phone: Blood erythrocytes count (nu mber/volume)on 09-11-2022 RBC (Bld) [#/Vol] 4.75 10*6/uL 4.6-6.2 [facility] Work Phone: Blood hemoglobin measurement (mass/volume)on 09-11-2022 Hemoglobin (Bld) [Mass/Vol] 13.8 g/dL 13.0-16.5 [facility] Work Phone: Blood lymphocytes/100 leukoc yteson 09-11-2022 Lymphocytes/100 WBC (Bld) 28.6 % 19-41 [facility] Work Phone: Blood monocytes/100 leukocyt eson 09-11-2022 Monocytes/100 WBC (Bld) 8.0 % 0-10 [facility] Work Phone: Blood platelet mean volumeon 09-11-2022 Platelet mean volume (Bld) [Entitic vol] 10.2 fL 6.2-12.0 [facility] Work Phone: Determination of erythrocyte mean corpuscular volume (MCV)on 09-11-2022 MCV (RBC) [Entitic vol] 86.3 fL 80-94 [facility] Work Phone: Hematocrit Auto (Bld) [Volum e fraction]on 09-11-2022 Hematocrit (Bld) [Volume fraction] 41.0 % 40-54 [facility] Work Phone: Laboratory - Chemistry and C hemistry - challengeon 09-11-2022 ALP [Catalytic activity/Vol] 58 U/L 45-117 [facility] Work Phone: ALT [Catalytic activity/Vol] 36 U/L 16-61 [facility] Work Phone: CO2 [Moles/Vol] 28.0 mmol/L 21.0-32.0 [facility] Work Phone: Globulin (S) [Mass/Vol] 3.1 g/dL 2.2-4.2 [facility] Work Phone: Urea nitrogen/Creatinine [Mass ratio] 19.6 mg/mg 10-20 [facility] Work Phone: Laboratory - Hematology and Cell countson 09-11-2022 Erythrocyte distribution width (RBC) [Entitic vol] 39.1 fL 35.1-43.9 [facility] Work Phone: Erythrocyte distribution width (RBC) [Ratio] 12.4 % 11.6-14.6 [facility] Work Phone: Immature granulocytes/100 WBC (Bld) 0.600 % 0.0-0.9 [facility] Work Phone: Comment on above: IG% - Immature Granu locytes (promyelocytes, myelocytes and metamyelocytes) > 1% indicates that a LEFT SHIFT is Present. MCH (RBC) [Entitic mass] 29.1 pg 27.0-32.0 [facility] Work Phone: Nucleated RBC/100 WBC (Bld) [Ratio] 0 % 0-5 [facility] Work Phone: MCHC Auto (RBC) [Mass/Vol]on 09-11-2022 MCHC (RBC) [Mass/Vol] 33.7 g/dL 32-36 [facility] Work Phone: No Panel Informationon 09-11 Estimated GFR (MDRD) Amer 108 mL/min >60 [facility] Work Phone: Comment on above: GFR Calc Estimated GFR (MDRD) Non-Af Amer 90 mL/min >60 [facility] Work Phone: Comment on above: Non- GFR Calc Vitamin D 25-Hydroxy 25.8 ng/mL [facility] Work Phone: Comment on above: Vitamin D 25(OH) Sta tus Range Deficiency <20 ng/mL (50nmol/L) Insufficiency 20 - 30 ng/mL (50 - 75 nmol/L) Sufficiency 30 - 100 ng/mL (75 - 250 nmol/L) Toxicity >100 ng/mL (>250 nmol/L) Platelets bldon 09-11-2022 Platelets (Bld) [#/Vol] 211 10*3/uL 150-450 [facility] Work Phone: Serum or plasma albumin denise urement (mass/volume)on 09-11-2022 Albumin [Mass/Vol] 3.7 g/dL 3.2-5.0 [facility] Work Phone: Serum or plasma albumin/glob ulin mass ratioon 09-11-2022 Albumin/Globulin [Mass ratio] 1.2 {ratio} 0.9-2.4 [facility] Work Phone: Serum or plasma calcium denise urement (mass/volume)on 09-11-2022 Calcium [Mass/Vol] 8.6 mg/dL 8.5-10.1 [facility] Work Phone: Serum or plasma cholesterol in HDL measurement (mass/volume)on 09-11-2022 Cholesterol in HDL [Mass/Vol] 38 mg/dL >40 [facility] Work Phone: Comment on above: The drugs N-Acetylcy steine and Metamizole may falsely depress this assay. Reference Range HDL <40 mg/dL Low HDL Cholesterol HDL >or= 60 mg/dL High HDL Cholesterol Serum or plasma cholesterol in VLDL measurement (mass/volume)on 09-11-2022 Cholesterol in VLDL [Mass/Vol] 20 mg/dL 5-40 [facility] Work Phone: Serum or plasma creatinine m easurement (mass/volume)on 09-11-2022 Creatinine [Mass/Vol] 0.92 mg/dL 0.70-1.30 [facility] Work Phone: Comment on above: The validity of the calculated GFR & GFRAA in patients over 70 years has not been determined. Clinical correlation is essential. Serum or plasma low density lipoprotein (LDL) cholesterol measurement (mass/volume)on 09-11-2022 Cholesterol in LDL [Mass/Vol] 151 mg/dL 0-130 [facility] Work Phone: Serum or plasma urea nitroge n measurement (mass/volume)on 09-11-2022 Urea nitrogen [Mass/Vol] 18 mg/dL 7-18 [facility] Work Phone: Thin prep Papanicolaou smear with manual screeningon 09-11-2022 Thin prep Papanicolaou smear with manual screening 16 U/L 15-37 [facility] Work Phone: Thin prep Papanicolaou smear with manual screening 6 5-15 [facility] Work Phone: Absolute lymphocyte counton 04-20-2022 Lymphocytes Auto (Unsp spec) [#/Vol] 2.51 10*3/uL 0.83-4.51 [facility] Work Phone: Basophil percentageon 2021 Basophil percentage 0 SEEN /hpf 0-5 [facility] Work Phone: Basophils/100 WBC (Bld) 0.5 % 0-1 [facility] Work Phone: Bilirubin [Mass/Vol] 1.00 mg/dL 0.20-1.00 [facility] Work Phone: Comment on above: For patients on eltr ombopag therapy, use of Dimension [place] TBIL is not recommended. Chloride [Moles/Vol] 107 mmol/L 98-107 [facility] Work Phone: Cholesterol [Mass/Vol] 229 mg/dL <200 [facility] Work Phone: Comment on above: <200 mg/dL Desirable 200-240 mg/dL Borderline >240 mg/dL High Risk Eosinophils/100 WBC (Bld) 1.9 % 0-5 [facility] Work Phone: Glucose [Mass/Vol] 85 mg/dL 74-106 [facility] Work Phone: Neutrophils (Bld) [#/Vol] 4.8 10*3/uL 2.0-7.7 [facility] Work Phone: Neutrophils/100 WBC (Bld) 56.8 % 47-70 [facility] Work Phone: Potassium [Moles/Vol] 4.3 mmol/L 3.5-5.1 [facility] Work Phone: Protein [Mass/Vol] 7.5 g/dL 6.4-8.2 [facility] Work Phone: Sodium [Moles/Vol] 140 mmol/L 136-145 [facility] Work Phone: Triglyceride [Mass/Vol] 71 mg/dL <199 [facility] Work Phone: Comment on above: The drugs N-Acetylcy steine and Metamizole may falsely depress this assay.Serum Triglycerides Reference Interval Normal <150 mg/dL Borderline high 150 - 199 mg/dL High 200 - 499 mg/dL Very High > or = 500 mg/dL WBC (Bld) [#/Vol] 8.4 10*3/uL 4.4-11.0 [facility] Work Phone: Bilirubin Test strip Ql (U)o n 04-20-2022 Bilirubin Ql (U) Negative Negative [facility] Work Phone: Blood erythrocytes count (nu mber/volume)on 04-20-2022 RBC (Bld) [#/Vol] 4.75 10*6/uL 4.6-6.2 [facility] Work Phone: Blood hemoglobin measurement (mass/volume)on 04-20-2022 Hemoglobin (Bld) [Mass/Vol] 13.5 g/dL 13.0-16.5 [facility] Work Phone: Blood lymphocytes/100 leukoc yteson 04-20-2022 Lymphocytes/100 WBC (Bld) 30.0 % 19-41 [facility] Work Phone: Blood monocytes/100 leukocyt eson 04-20-2022 Monocytes/100 WBC (Bld) 10.4 % 0-10 [facility] Work Phone: Blood platelet mean volumeon 04-20-2022 Platelet mean volume (Bld) [Entitic vol] 10.7 fL 6.2-12.0 [facility] Work Phone: Determination of erythrocyte mean corpuscular volume (MCV)on 04-20-2022 MCV (RBC) [Entitic vol] 84.8 fL 80-94 [facility] Work Phone: Hematocrit Auto (Bld) [Volum e fraction]on 04-20-2022 Hematocrit (Bld) [Volume fraction] 40.3 % 40-54 [facility] Work Phone: Ketones Test strip Ql (U)on 04-20-2022 Ketones Ql (U) Negative Negative [facility] Work Phone: Laboratory - Chemistry and C hemistry - challengeon 04-20-2022 ALP [Catalytic activity/Vol] 59 U/L 45-117 [facility] Work Phone: ALT [Catalytic activity/Vol] 23 U/L 16-61 [facility] Work Phone: CO2 [Moles/Vol] 27.0 mmol/L 21.0-32.0 [facility] Work Phone: Cobalamin (Vitamin B12) [Mass/Vol] 269 pg/mL 211-911 [facility] Work Phone: Free T4 [Mass/Vol] 1.01 ng/dL 0.76-1.46 [facility] Work Phone: Globulin (S) [Mass/Vol] 3.6 g/dL 2.2-4.2 [facility] Work Phone: Urea nitrogen/Creatinine [Mass ratio] 14.1 mg/mg 10-20 [facility] Work Phone: Laboratory - Hematology and Cell countson 04-20-2022 Erythrocyte distribution width (RBC) [Entitic vol] 38.5 fL 35.1-43.9 [facility] Work Phone: Erythrocyte distribution width (RBC) [Ratio] 12.5 % 11.6-14.6 [facility] Work Phone: Immature granulocytes/100 WBC (Bld) 0.400 % 0.0-0.9 [facility] Work Phone: Comment on above: IG% - Immature Granu locytes (promyelocytes, myelocytes and metamyelocytes) > 1% indicates that a LEFT SHIFT is Present. MCH (RBC) [Entitic mass] 28.4 pg 27.0-32.0 [facility] Work Phone: Nucleated RBC/100 WBC (Bld) [Ratio] 0 % 0-5 [facility] Work Phone: MCHC Auto (RBC) [Mass/Vol]on 04-20-2022 MCHC (RBC) [Mass/Vol] 33.5 g/dL 32-36 [facility] Work Phone: Mucus LM Ql (Urine sed)on Mucus Ql (Urine sed) 0 SEEN /hpf [facility] Work Phone: Nitrite Test strip Ql (U)on 04-20-2022 Nitrite Ql (U) Negative Negative [facility] Work Phone: No Panel Informationon 04-20 Estimated GFR (MDRD) Amer 100 mL/min >60 [facility] Work Phone: Comment on above: GFR Calc Estimated GFR (MDRD) Non-Af Amer 82 mL/min >60 [facility] Work Phone: Comment on above: Non- GFR Calc Thyroid Stimulating Hormone (TSH) 0.92 uIU/mL 0.358-3.74 [facility] Work Phone: Vitamin D 25-Hydroxy 27.6 ng/mL [facility] Work Phone: Comment on above: Vitamin D 25(OH) Sta tus Range Deficiency <20 ng/mL (50nmol/L) Insufficiency 20 - 30 ng/mL (50 - 75 nmol/L) Sufficiency 30 - 100 ng/mL (75 - 250 nmol/L) Toxicity >100 ng/mL (>250 nmol/L) Platelets bldon 04-20-2022 Platelets (Bld) [#/Vol] 193 10*3/uL 150-450 [facility] Work Phone: Protein Test strip Ql (U)on 04-20-2022 Protein Ql (U) Negative Negative [facility] Work Phone: Serum or plasma albumin denise urement (mass/volume)on 04-20-2022 Albumin [Mass/Vol] 3.9 g/dL 3.2-5.0 [facility] Work Phone: Serum or plasma albumin/glob ulin mass ratioon 04-20-2022 Albumin/Globulin [Mass ratio] 1.1 {ratio} 0.9-2.4 [facility] Work Phone: Serum or plasma calcium denise urement (mass/volume)on 04-20-2022 Calcium [Mass/Vol] 9.0 mg/dL 8.5-10.1 [facility] Work Phone: Serum or plasma cholesterol in HDL measurement (mass/volume)on 04-20-2022 Cholesterol in HDL [Mass/Vol] 42 mg/dL >40 [facility] Work Phone: Comment on above: The drugs N-Acetylcy steine and Metamizole may falsely depress this assay. Reference Range HDL <40 mg/dL Low HDL Cholesterol HDL >or= 60 mg/dL High HDL Cholesterol Serum or plasma cholesterol in VLDL measurement (mass/volume)on 07-15-2022 Cholesterol in VLDL [Mass/Vol] 14 mg/dL 5-40 [facility] Work Phone: Serum or plasma creatinine m easurement (mass/volume)on 04-20-2022 Creatinine [Mass/Vol] 0.99 mg/dL 0.70-1.30 [facility] Work Phone: Comment on above: The validity of the calculated GFR & GFRAA in patients over 70 years has not been determined. Clinical correlation is essential. Serum or plasma low density lipoprotein (LDL) cholesterol measurement (mass/volume)on 04-20-2022 Cholesterol in LDL [Mass/Vol] 173 mg/dL 0-130 [facility] Work Phone: Serum or plasma urea nitroge n measurement (mass/volume)on 04-20-2022 Urea nitrogen [Mass/Vol] 14 mg/dL 7-18 [facility] Work Phone: Squamous epithelial cells de tection in urine sediment by light microscopyon 04-20-2022 Epithelial cells.squamous LM Ql (Urine sed) 0-5 SEEN /hpf 0-5 [facility] Work Phone: Thin prep Papanicolaou smear with manual screeningon 04-20-2022 Thin prep Papanicolaou smear with manual screening 14 U/L 15-37 [facility] Work Phone: Thin prep Papanicolaou smear with manual screening 6 -15 [facility] Work Phone: Urine blood detectionon 04-06 RBC Ql (U) 10 /ul Negative [facility] Work Phone: RBC Ql (U) 0 SEEN /hpf 0-5 [facility] Work Phone: Urine clarityon 04-20-2022 Clarity (U) Clear Clear [facility] Work Phone: Urine color determinationon 04-20-2022 Color (U) Yellow Yellow [facility] Work Phone: Urine glucose detectionon Glucose Ql (U) Normal mg/dl Normal [facility] Work Phone: Urine leukocyte esterase det ection by dipstickon 04-20-2022 Leukocyte esterase Test strip Ql (U) Negative Negative [facility] Work Phone: Urine pHon 04-20-2022 pH (U) 6.5 [pH] 5.0 - 8.0 [facility] Work Phone: Urine sediment bacteria coun t by microscopy (number/high power field)on 04-20-2022 Bacteria LM.HPF (Urine sed) [#/Area] RARE /hpf None Seen [facility] Work Phone: Urine specific gravity measu rementon 04-20-2022 Specific gravity (U) [Rel density] 1.015 1.002-1.030 [facility] Work Phone: Urobilinogen Auto test strip Ql (U)on 04-20-2022 Urobilinogen Ql (U) Normal mg/dl Normal [facility] Work Phone: CR Hand Complete 3+ Views Ri diana 04-08-2020 CR Hand Complete 3+ Views Right Patient Name: SUSANA CORTÉS Diagnostic Radiology Exam Date/Time 04/08/2020 14:16:19 EDT Exam CR Hand Complete 3+ Views Right Ordering Physician MD DUEÑAS DAVID L Accession Number [id number] CPT4 Codes 07274 () Reason For Exam pain, injury 2nd digit Report EXAMINATION: Right hand: Three views. COMPARISON: None. REASON FOR STUDY: Pain after injury to 2nd digit. FINDINGS: Osseous structures appear intact and anatomically aligned. Bones are normally mineralized. No abnormal erosion, periosteal reaction or sclerosis is identified. Soft tissues appear intact. Radiopaque foreign body is observed superficial to the 3rd proximal phalanx anteriorly. CONCLUSION(S): 1. No evidence of acute bone injury or malalignment. 2. Radiopaque foreign body in the palmar aspect of the 3rd digit. Report Dictated on Workstation: [employer] Final Dictating Physician: MD ILYA, Brodie LOPEZ Signed Date and Time: 04/08/2020 2:57 pm Signed by: MD CARABALLO B NELSON Transcribed Date and Time: 04/08/2020 2:58 Normal [facility] XR HAND RIGHT (MIN 3 VIEWS)o n 04-08-2020 Patient Name: SUSANA CORTÉS ---Diagnostic Radiology--- Exam Date/Time 04/08/2020 14:16:19 EDT Exam CR Hand Complete 3+ Views Right Ordering Physician MD DUEÑAS DAVID L Accession Number [id number] CPT4 Codes 55769 () Reason For Exam pain, injury 2nd digit Report EXAMINATION: Right hand: Three views. COMPARISON: None. REASON FOR STUDY: Pain after injury to 2nd digit. FINDINGS: Osseous structures appear intact and anatomically aligned. Bones are normally mineralized. No abnormal erosion, periosteal reaction or sclerosis is identified. Soft tissues appear intact. Radiopaque foreign body is observed superficial to the 3rd proximal phalanx anteriorly. CONCLUSION(S): 1. No evidence of acute bone injury or malalignment. 2. Radiopaque foreign body in the palmar aspect of the 3rd digit. Report Dictated on Workstation: [employer] --- Final --- Dictating Physician: MD CARABALLO B NELSON Signed Date and Time: 04/08/2020 2:57 pm Signed by: MD CARABALLO B NELSON Transcribed Date and Time: 04/08/2020 2:58 [facility] [place] [place], [facility] 04/08/2020 2:59 PM EDT Patient Name: SUSANA CORTÉS ---Diagnostic Radiology--- Exam Date/Time 04/08/2020 14:16:19 EDT Exam CR Hand Complete 3+ Views Right Ordering Physician MD DUEÑAS DAVID L Accession Number [id number] CPT4 Codes 88469 () Reason For Exam pain, injury 2nd digit Report EXAMINATION: Right hand: Three views. COMPARISON: None. REASON FOR STUDY: Pain after injury to 2nd digit. FINDINGS: Osseous structures appear intact and anatomically aligned. Bones are normally mineralized. No abnormal erosion, periosteal reaction or sclerosis is identified. Soft tissues appear intact. Radiopaque foreign body is observed superficial to the 3rd proximal phalanx anteriorly. CONCLUSION(S): 1. No evidence of acute bone injury or malalignment. 2. Radiopaque foreign body in the palmar aspect of the 3rd digit. Report Dictated on Workstation: [id number] --- Final --- Dictating Physician: MD CARABALLO B NELSON Signed Date and Time: 04/08/2020 2:57 pm Signed by: MD CARABALLO B NELSON Transcribed Date and Time: 04/08/2020 2:58 [place], [place] Vital Signs Date Time Vital Sign Value Performing Clinician Facility 03-29-2025 21:48-0400 Body temperature 97 [degF] No Primary Care Physician [facility] 03-29-2025 21:48-0400 Diastolic blood pressure 83 mm[Hg] No Primary Care Physician [facility] 03-29-2025 21:48-0400 Heart rate 65 /min No Primary Care Physician [facility] 03-29-2025 21:48-0400 Respiratory rate 16 /min No Primary Care Physician [facility] 03-29-2025 21:48-0400 SaO2% (BldA) [Mass fraction] 97 % No Primary Care Physician [facility] 03-29-2025 21:48-0400 Systolic blood pressure 149 mm[Hg] No Primary Care Physician [facility] 03-29-2025 18:42-0400 Body height 175.26 cm No Primary Care Physician [facility] 03-29-2025 18:42-0400 Body mass index (BMI) [Ratio] 43.8 kg/m2 No Primary Care Physician [facility] 03-29-2025 18:42-0400 Body weight 134.7 kg No Primary Care Physician [facility] 05-17-2023 09:20-0400 Body temperature 97.6 [degF] Dr. Kayden Shearer Work Phone: [facility] 05-17-2023 09:20-0400 Diastolic blood pressure 73 mm[Hg] Dr. Kayden Shearer Work Phone: [facility] 05-17-2023 09:20-0400 Heart rate 60 /min Dr. Kayden Shearer Work Phone: [facility] 05-17-2023 09:20-0400 Respiratory rate 16 /min Dr. Kayden Shearer Work Phone: [facility] 05-17-2023 09:20-0400 SaO2% (BldA) [Mass fraction] 97 % Dr. Kayden Shearer Work Phone: [facility] 05-17-2023 09:20-0400 Systolic blood pressure 127 mm[Hg] Dr. Kayden Shearer Work Phone: [facility] 05-17-2023 07:34-0400 Body height 175.[address] Kayden Shearer Work Phone: [facility] 05-17-2023 07:34-0400 Body mass index (BMI) [Ratio] 41 kg/m2 Dr. Kayden Shearer Work Phone: [facility] 05-17-2023 07:34-0400 Body weight [address] Kayden Shearer Work Phone: [facility] 04-23-2023 11:08-0400 Body mass index (BMI) [Ratio] 41.3 kg/m2 Dr. Kayden Shearer Work Phone: [facility] 04-23-2023 11:08-0400 Body weight [address] Kayden Shearer Work Phone: [facility] 04-08-2020 13:19-0400 Body Temperature 98.29 [degF] [facility], [place] 04-08-2020 13:19-0400 Body weight 113.4 kg [facility] , [place] 04-08-2020 13:19-0400 BP Diastolic 94 mm[Hg] [facility] , [place] 04-08-2020 13:19-0400 BP Systolic 158 mm[Hg] [facility] , [place] 04-08-2020 13:19-0400 Pulse (Heart Rate) 96 /min [facility], [place] 04-08-2020 13:19-0400 Pulse Oximetry 98 % [facility] , [place] 04-08-2020 13:19-0400 Respiratory Rate 16 /min Sus[facility] [place] [place] Encounters Encounter Date Encounter Type Care Provider Facility Start: 03-29-2025 End: 03-29-2025 Emergency department patient visit No Primary Care Physician -Emergency Department Work Phone: Start: 08-12-2024 End: 08-12-2024 ambulatory Kayden Shearer [place] [place]: 08-12-2024 End: 08-12-2024 ambulatory Kayden Shearer Facility:[facility] Start: 09-19-2023 End: 09-19-2023 ambulatory [facility] Work Phone: Start: 09-19-2023 End: 09-19-2023 Patient encounter procedure [facility] Work Phone: Start: 09-19-2023 End: 09-19-2023 ambulatory Kayden Shearer Facility:[facility] Start: 05-17-2023 Non-patient / Non-visit Dr. Charlotte Shearer Work Phone: [facility] Start: 05-17-2023 End: 05-17-2023 Admission to same day surgery center Dr. Kayden Shearer Work Phone: [facility] Work Phone: Start: 05-17-2023 End: 05-17-[address] Kayden Shearer Work Phone: [facility] Work Phone: Start: 04-23-2023 Non-patient / Non-visit Dr. Charlotte Shearer Work Phone: [facility] Work Phone: Start: 03-21-2023 End: 03-21-[address] Kayden Shearer Work Phone: [facility] Work Phone: Start: 09-17-2022 Non-patient / Non-visit Dr. Charlotte Shearer Work Phone: [facility] Start: 09-14-2022 End: 09-14-[address] [facility] Start: 09-11-2022 End: 09-11-[address] Kayden Shearer Work Phone: [facility] Work Phone: Start: 09-11-2022 End: 09-11-[address] Kayden Shearer Work Phone: [facility] Start: 07-13-2022 Non-patient / Non-visit Dr. Charlotte Shearer Work Phone: [facility] Start: 07-13-2022 End: 07-13-[address] Kayden Shearer Work Phone: [facility] Work Phone: Start: 07-13-2022 End: 07-13-[address] [facility] Start: 04-20-2022 End: 04-20-2022 Patient encounter procedure [facility] Start: 04-08-2020 End: 04-08-2020 Emergency department patient visit Susana Dueñas Work Phone: [facility] ED Comment on above: Laceration of right index finger without damage to nail, foreign body presence unspecified, initial encounter (Primary Dx) Procedures Date Procedure Procedure Detail Performing Clinician Start: 03-29-2025 CT of head without contrast No Primary Care Physician Start: 03-29-2025 Plain chest X-ray No Pr imary Care Physician Start: 03-29-2025 Estimated creatinine clearance No Primary Care Physician Start: 05-17-[address] Kayden simmons Work Phone: Start: 04-20-2022 Plain chest X-ray Start: 04-08-2020 Radex hand minimum 3 views Susana Dueñas Work Phone: Start: 08-03-2018 Follow-up visit Plan of Treatment Date Care Activity Detail Author Start: 03-29-2025 [facility] Start: 03-29-2025 [facility] Start: 05-17-2023 Patient discharge [facility] Start: 06-07-2020 Influenza vaccination Flu vaccine (# 1) [place], [place] Colonoscopy [facility] Patient Education ED Pain, Acute , Uncertain Cause [facility] Work Phone: Patient referral [facility] Work Phone: Immunizations Immunization Date Immunization Notes Care Provider Fa molly 04-08-2020 tetanus toxoid, redu manpreet diphtheria toxoid, and acellular pertussis vaccine, adsorbed Susana Dueñas [place], [place] 04-08-2020 diphtheria, tetanus toxoids and acellular pertussis vaccine, unspecified formulation Susana Dueñas [place], [place] Payers Date Payer Category Payer Private Health Insurance [id number] 2023 Self-pay Unknown [id number] Unknown [id number] Unknown [id number] Unknown [id number] Social History Date Type Detail Facility Start: 04-08-2020 Tobacco smoking stat us [facility] Light tobacco smoker [place], [place] History of tobacco use Cigar Smoker [place] Start: 04-08-2020 Alcohol intake Current drinke r of alcohol (finding) [place], [place] Start: 04-08-2020 Alcohol Comment occ [place], [place] Sex Assigned At Not on file [place], [place] Exposure to SARS-CoV -2 (event) Unable to assess [place], [place] Start: 1965 Sex Assigned At Male [facility] Start: 05-17-2023 End: 03-29-2025 Tobacco smoking status NHIS Unknown if ever smoked [facility] Goals Date Patient Goal Desired Activity /State Mental Status Date Assessment Result Facility 03-29-2025 Cognitive function Level Of Cons ciousness Awake;Alert;Appropriate;Follow s Commands [facility] Work Phone: 05-17-2023 Cognitive function Level Of Cons ciousness Appropriate [facility] Work Phone: Clinical Notes 05-17-2023 to 03-29-2025 Note Date & Type Note Facility 03-29-2025 Discharge summary [facility] 03-29-2025 Radiology Diagnostic study note [facility] Imaging Services [address] [place], [place] [id number] Brain/Head without Contrast MR#: [id number] Acct: [id number] Name: SUSANA CORTÉS Rep #: [id number] : 1965 M 59 From: Dana Chau MD PCP: Care Physician,No Primary Status: REG ER Study:Brain/Head without Contrast Date of Exa m: 03/29/25 Exam# [id number] Ordering Dr: Ulices Diaz MD PROCEDURE: BRAIN/HEAD WITHOUT CONTRAST 03/29/2025 REASON FOR EXAM: PAIN RIGHT CHEONDOISM TECHNIQUE: BRAIN/HEAD WITHOUT CONTRAST Coronal and Sagittal reconstruction series were provided. One or more dose reduction techniques were used (e.g., Automated exposure control, adjustment of the mA and/or kV according to patient size, use of iterative reconstruction technique. RADIATION DOSE SUMMARY: CTDlvol: 47.1 mGy DLP: 926 mGycm COMPARISON: None FINDINGS: Brain: No acute intracranial hemorrhage, mass effect, or midline shift. Chery-white differentiation is predominantly maintained. CSF Spaces: Unremarkable for age. Sinuses/Mastoids: Mucosal thickening and opacification throughout the left-sidedsinuses. Bones: Congenital incomplete fusion of the posterior arch of C1. CT/Brain/Head without Contrast IMPRESSION: 1. No acute intracranial abnormality. 2. Left-sided sinus disease. Reading Location: [id number] CC: Dr. 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 COMPARISON: Chest radiographs on 04/20/2022 FINDINGS: Hardware: None Heart: Cardiac and mediastinal contours are stable. Aortic atherosclerosis. Lungs: No focal consolidation or pleural effusion. Bones: Degenerative changes are identified within the thoracic spine. RAD/Chest 1 View (Portable) IMPRESSION: No acute cardiopulmonary abnormality. Reading Location: [facility] CC: Dr. 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 [facility] 03-29-2025 Discharge summary Note Date/Time March 29, 2025 9:39pm [facility] Medical Records Department [address] [place] [address] Emergency Department Summary 03/29/25 MR#: [id number] Acct: [id number] Name: SUSANA CORTÉS Rep #:[id number] : 1965 59 From: Ulices Diaz MD PCP: Care Physician,No Primary Status :REG ER Location: ED HPI History of Present Illness Chief Complaint: Dizziness Narrative Narrative: 59-year-old male presents with his because of pain in his right yazidism and spasming that he has had intermittently over the last 3 years. She also had chest pain and considerable workup as well. 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 He became concerned today because he felt that this fleeting spasming or pain on the right side of his eye and yazidism was affecting his reflexes. He denies any fevers or chills, no loss of vision, no exacerbating or alleviating factors. He states he also has had intermittent chest pain over the last 3 years as well. He had echocardiogram done, and multiple workups but states thatthey cannot find anything wrong. Once again, he denies any loss of vision, no numbness or tingling of his arms or legs, no loss of motor function. This is the first time that he thought that the pain in his right eye affected his reaction times. [facility] Medical History Strain of left Achilles tendon CPAP (continuous positive airway pressure) dependence Sleep apnea Wears glasses High cholesterol Restless legs Former smoker Shortness of breath on exertion History of echocardiogram History of stress test Left atrial enlargement Anemia Hyperlipidemia Vitamin D deficiency HUY on CPAP HUY (obstructive sleep apnea) Home Medications ?Medication ?Instructions ?Recorded ?Last Taken ?Type albuterol sulfate 90 mcg/actuation 2 puff inhalation Q 4H PRN 04/23/23 Unknown History aerosol inhaler shortness of breath or wheez ing cholecalciferol (vitamin D3) 50 50 mcg PO DAILY Unknown History mcg (2,000 unit) capsule Allergy/AdvReac Type Severity Reaction Status Date / Time rosuvastatin (From Crestor) AdvReac HEADACHE Verified 03/29/25 18:41 Social History current occupational status: employed Smoking Status: Unknown if ever smoked ROS ROS ED ROS Narrative Review of systems positive for right side of eye/yazidism pain, fleeting, ongoing for the last 3 years. No loss of vision. No pain with eye movement. No headache. Complains of intermittent chest pain as well. No current shortness of breath. No cough. EXAM Physical Exam Narrative Exam Narrative: Afebrile. Vital signs noted. Nontoxic-appearing. Cardiovascular examination reveals a regular rate and rhythm. Lungs are clear to auscultation bilaterally. Abdomen is soft and nontender without guarding or rebound. Neurological examination is nonfocal, nonlateralizing. HEENT examination reveals PERRL, EOMI. No pulse deficit right yazidism. Const Vital Signs: 03/29/25 18:41 03/29/25 18:42 03/29/25 19:41 Temperature 97 F L Temperature Source Temporal Pulse Rate 76 87 Respiratory Rate 18 14 Blood Pressure 188/103 H 188/103 H 118/96 H Blood Pressure Mean 131 131 103 Pulse Ox 98 98 97 Oxygen Delivery Method Room Air Room Air Room Air 03/29/25 20:00 03/29/25 21:00 Temperature Temperature Source Pulse Rate 67 Respiratory Rate Blood Pressure 118/96 H 117/79 Blood Pressure Mean 103 91 Pulse Ox 97 95 Oxygen Delivery Method Room Air Room Air MDM MDM MDM Narrative Medical decision making narrative: Differential diagnosis includes but not limited to blepharospasm versus giant cell arteritis versus intracranial hemorrhage. I have low suspicion for stroke. I had a lengthy discussion with the patient. He states he has been worked up by pulmonology and no longer sees a primary care physician because he went every3 months for the same yazidism pain, and chest pain and has had extensive workup. EKG was obtained and interpreted by myself independently as normal sinus rhythm at 78 bpm without ectopy or acute ST changes. No STEMI. Initially had elevated blood pressure, it is normalized upon repeat examination to 117 systolic. I reviewed his laboratory work and he has normal white count of 7.8 with hemoglobin normal at 13.0, platelet count normal at 182. Electrolyte panel is grossly unremarkable with normal sodium 139 potassium 3.9. Glucose elevated at 125 with normal anion gap of 13, high-sensitivity troponin less than 6. I doubt ACS and I do not feel he needs serial enzymes as this has been ongoing for [address] of the brain was obtained and there is no acute process on review of the radiology report. Chest x-ray interpreted by myself independently shows no pneumonia or pneumothorax. I reviewed the radiology report which confirms my independent interpretation. With the thought of temporal arteritis, I obtained an ESR which is normal at 17. I do not feel thathe needs a temporal artery biopsy. Upon repeat examination he is resting comfortably. I do not feel that there is a direct correlation between his reported loss of response time or reflexes as he stated. I offered to write him off work for the next day or 2 but he declined. I do not feel he requires observation or admission. Return instructions to the emergency department were reviewed. Disposition is discharged home in stable condition. History & Record Review Discussion w/independent historian: Patient and Family Additional record(s) reviewed:: Prior outpatient record (Noncontributory to current chief complaint) Lab Data Attestation: I reviewed the patient's lab results. Labs: Laboratory Results - last 24 hr 03/29/25 19:04 WBC 7.8 RBC 4.63 Hgb 13.0 Hct 38.6 L MCV 83.4 MCH 28.1 MCHC 33.7 RDW Std Deviation 38.3 RDW Coeff of [place] 12.7 Plt Count 182 MPV 11.1 Immature Gran % (Auto) 0.400 Neut % (Auto) 57.4 Lymph % (Auto) 29.2 Forest % (Auto) 8.4 Eos % (Auto) 4.1 Baso % (Auto) 0.5 Absolute Neuts (auto) 4.5 Absolute Lymphs (auto) 2.29 Nucleated RBC % 0 ESR 17 Sodium 139 Potassium 3.9 Chloride 105 Carbon Dioxide 22.0 Anion Gap 13 BUN 11 Creatinine 0.89 Estim Creat Clear Calc 118.72 Est GFR (MDRD) Non-Af 98 BUN/Creatinine Ratio 12.1 Glucose 125 H Calcium 8.9 Troponin T High Sens < 6 Radiography Diagnostic Testing: Clinical Impression(s) from Imaging Studies Brain CT 03/29/25 20:06 IMPRESSION: 1. No acute intracranial abnormality. 2. Left-sided sinus disease. Reading Location: [facility] Chest X-Ray 03/29/25 20:06 IMPRESSION: No acute cardiopulmonary abnormality. Reading Location: [facility] Discharge Plan Triage Chief Complaint: Dizziness ED Provider: Ulices Diaz Dx/Rx/DC Orders Clinical Impression: Pain around eye, Right facial pain Instructions: ED Pain, Acute, Uncertain Cause Prescriptions: No Action cholecalciferol (vitamin D3) 50 mcg (2,000 unit) capsule 50 mcg PO DAILY albuterol sulfate 90 mcg/actuation HFA aerosol inhaler 2 puff inhalation Q4H PRN (Reason: shortness of breath or wheezing) Primary Care Provider: Care Physician,No Primary Referrals: Figueroa Shaw MD [Med Staff - Active Staff] - 3-5 Days if not improving Care Physician,No Primary [Primary Care Provider] - Activity Restrictions/Additional Instructions: Follow-up with your primary care provider. Return with fever, loss of vision, new or worsening symptoms. Print Language: Danish Disposition Disposition: Home, Self Care What to do if you have Problems For any increased pain, shortness of breath, bleeding, nausea or vomiting, chestpain, or any unexpected problems, contact your Primary Care Provider. Call [facility] ([phone]) or report to the closest Emergency Room. Call 911 if necessary. 03/29/252138 <Electronically signed by Ulices Diaz MD> Cosigner Signature (if applicable): CC: No Primary Care Physician ~ Signed [facility] Work Phone: [phone]) 788-141908-11-2023 [facility] Work Phone: Evaluation note* Diagnosis Onset Date Resolution Status Encounter for screening for malignant neoplasm of colo n acute [facility] Work Phone: History and physical note Author Moises Enriquez [facility] May 17, 2023 8:20am Note Date/Time May 17, 2023 8: 20am [facility] Medical Records Department [address] [place] [address] History & Physical Exam 05/17/23 0820 MR#: [id number] Acct: [id number] Name: SUSANA CORTÉS Rep #:[id number] : 1965 57 From: Moises villeda MD PCP: Dr. Kayden Shearer MD Status:[facility] Location: [place] [address] HPI - General HPI Narrative SUSANA CORTÉS, is a 57 M who presents for screening colonoscopy. Patient has never had a colonoscopy in the past. Patient denies any abdominal pain or bloodin the stool. Patient has no family history of colon cancer. [facility] Medical History (Updated 05/14/23 @ 15:02 by Adelita Go) Anemia CPAP (continuous positive airway pressure) dependence Former smoker High cholesterol History of echocardiogram History of stress test Hyperlipidemia Left atrial enlargement HUY (obstructive sleep apnea) HUY on CPAP Restless legs Shortness of breath on exertion Sleep apnea Vitamin D deficiency Wears glasses Home Medications albuterol sulfate 90 mcg/actuation aerosol inhaler 2 puff inhalation Q4H PRN shortness of breath or wheezing 04/23/23 [History Last Taken Unknown] cholecalciferol (vitamin D3) 50 mcg (2,000 unit) capsule 50 mcg PO DAILY 04/23/23 [History Last Taken Unknown] Allergy/AdvReac Type Severity Reaction Status Date / Time rosuvastatin [From Crestor] AdvReac HEADACHE Verified 05/17/23 07:33 Social History (Updated 04/23/23 @ 11:02 by Rosetta Meyer) current occupational status: employed Smoking Status: Former smoker Past Medical/Surgical History Planned Operation Planned Operative Procedure/s: COLONOSCOPY-OA Previous Hospitalizations/Surgeries HX Hospitalizations: No Any Problems With Anesthesia: No You/Your Family Experience Fever (Hyperthermia) With Anes: No Cholinesterase deficiency: No Cardiovascular Hx Hypertension: No Respiratory Hx Sleep Apnea: Yes CPAP: Yes BIPAP: No Hx Respiratory Tract Infection/Cold (presently): No Do You Snore Loudly (louder than talking or can be heard): No Do You Often Feel Tired/ Fatigued/ Sleepy Dring Daytime?: No Has Anyone Observed You Stop Breathing During Sleep?: No Result (for STOP score): Positive Smoking Status: Former smoker Neurological Does patient have nerve stimulator: No Miscellaneous Recent Exposure to Contagious Disease: No Allergies rosuvastatin [From Crestor] Adverse Reaction (Verified 05/17/23 07:33) HEADACHE Discharge Is Pt Admitted From a [facility], or a Care Home: No After D/C, Where Do you Plan to Go: Return Home Vital Signs Vital Signs Vital Signs: 05/17/23 07:34 05/17/23 07:34 Temperature 97.4 F L Temperature Source Temporal Pulse Rate 70 Respiratory Rate 18 Respiratory Pattern Normal Blood Pressure 148/69 H Blood Pressure Mean 95 Blood Pressure Source Monitor Blood Pressure Position Semi-Fowlers Blood Pressure Location Left Arm Pulse Ox 98 Oxygen Delivery Method Room Air Weight Weight: 277 lb 12.519 oz Body Mass Index (BMI) 41.0 Physical Exam Const alert and oriented x3 HEENT normocephalic Eyes PERRL Resp normal respiratory effort and normal air movement Cardio regular rate and regular rhythm GI soft to palpation, non-tender and non-distended Extremity normal to inspection Assessment & Plan Assessment/Plan (1) Encounter for screening for malignant neoplasm of colon: PLAN: I explained endoscopy in detail to the patient. I explained the risks including but not limited to stroke or heart attack with anesthesia, perforationof the GI tract, bleeding, infection. I explained that any of these could necessitate further emergency surgery. The patient understands and all questions were answered sufficiently. The patient wishes to proceed with procedure. Moises Enriquez MD Pager: [facility] [address] [place] [address], [address] [place] [address] Office: Surgery Risks - Colonoscopy Risks Include but are not Limited To: Risks include but are not limited to: Bleeding, perforation requiring further surgery, inability to complete colonoscopy requiring barium enema. 05/17/23819 <Electronically signed by Moises Enriquez MD> Cosigner Signature (if applicable): CC: Dr. Moises Enriquez MD; Dr. Kayden Shearer MD~ Signed [facility] Work Phone: Hospital Discharge instructions Additional Instructions Follow-up with your primary care provider. Return with fever, loss of vision, new or worsening symptoms.[facility] Work Phone: Reason for referral (narrative)No reason for referral information availableWooMartins Ferry [facility] Work Phone: Summary Purpose Family History No Family History Records FoundNo Family History Records FoundNo Family History Records Found Advance Directives Advance Directive Response Recorded Date/ Time Living Will No May 14, 2023 2:59pm Power of Ged Tutor No May 14 2:59pm Advance Directive Response Recorded Date/ Time Living Will No May 14, 2023 1:59pm Power of Ged Tutor No May 14 1:59pm Advance Directive Response Recorded Date/ Time Do you have a Healthcare Power of Ged Tutor? No March 29, 2025 6:57pm Reason for Referral Status Reason Specialty Diagnoses / Procedures Referred By Contact Referred To Contact Open Specialty Services Required Orthopedic Surgery: Hand Surgery / Orthopedic Surgery Diagnoses Laceration of right index finger without damage to nail, foreign body presence unspecified, initial encounter Susana Dueñas MD [address] [place] [address] Jeffery Marcelino [facility] [address] [address] [place] [address] Scheduling Instructions [facility] Extremities [facility] [address] [place] [address] Discharge Instructions * Instructions* Susana Dueñas MD - 04/08/2020 Clean area twice daily and apply Neosporin or bacitracin ointment and bandage. Use protective splint as needed. Call hand surgery on Saturday for reevaluation. In the Emergency Room immediately if worse in anyway. * Attachments The following attachments cannot be sent through Care Everywhere. * Lacerations: Open (Danish) documented in this encounter Assessments Diagnosis Laceration of right index finger without damage to nail, foreign body presence unspecified, initial encounter Chief Complaint and Reason for Visit Chief Complaint SOB- LABS AND XRAY Chief Complaint SOB- LABS AND XRAY SOB Chief Complaint SOB EORDER SOB Shortness of breath Chief Complaint EORDER Amb Documentation Reason for Visit Encounter for screen ing for malignant neoplasm of colon Chief Complaint EORDER Chief Complaint Admit Date DIZZINESS March 29, 2025 6:40 pm Additional Source Comments (unrecognized sect ion and content) No Status Records FoundNo Status Records FoundNo Status Records Found INFORMATION SOURCE (unrecogn ized section and content) DATE CREATED AUTHOR 09/05/2018 [employer] DATE CREATED AUTHOR AUTHOR'S ORGANIZ ATION 04/29/2020 [facility] [employer] DATE CREATED AUTHOR AUTHOR'S ORGANIZ ATION 09/08/2024 [facility] Reason for Visit (unrecogniz ed section and content) Reason Comments Laceration Goals (unrecognized section and content) Goals may be documented in a n alternate sectionGoals may be documented in an alternate sectionGoals may be documented in an alternate sectionGoals may be documented in an alternate sectionGoals may be documented in an alternate section Care Teams (unrecognized sec tion and content) Team Status: Active Member Role Status Dates Dr. Kayden Shearer MD Primary Care Provider Active Team Status: Inactive Member Role Status Dates Dr. Kayden Shearer MD Primary Care Pr ramon Attending Provider, Referring Provider Active Team Status: Active Member Role Status Dates Dr. Kayden Shearer MD Primary Care Provider Active Rosetta Meyer Attending Provider Active Team Status: Active Member Role Status Dates Dr. Kayden Shearer MD Primary Care Provider, Referr ing Provider Active Dr. Moises Enriquez MD Attending Provider, Other Provider Active Team Status: Inactive Member Role Status Dates Dr. Kayden Shearer MD Primary Care Provider, Referr ing Provider Active Dr. Moises Enriquez MD Attending Provider Active Team Status: Active Member Role Status Dates No Primary Care Physician Primary Care Provider Active Team Status: Inactive Member Role Status Dates No Primary Care Physician Primary Care Provider Active Start: March 29, 2025 End: March 29, 2025 Ulices Diaz MD Emergency Provider Active Star t: March 29, 2025 End: March 29, 2025 FOR RECORDS PERTAINING TO PATIENTS WHO ARE OR HAVE BEEN ENROLLED IN A CHEMICAL DEPENDENCY/SUBSTANCEABUSE PROGRAM, SOME INFORMATION MAY BE OMITTED. This clinical summary was aggregated from multiple sources. Caution should be exercised in using it in the provision of clinical care. This summary normalizes information from multiple sources, and as a consequence, information in this document may materially change the coding, format and clinical context of patient data. In addition, data may be omitted in some cases. CLINICAL DECISIONS SHOULD BE BASED ON THE PRIMARY CLINICAL RECORDS. [facility]. provides no warranty or guarantee of the accuracy or completeness of information in this document.
== END 2025-03-29 21:50 | disposition home or self-care (01) ==
PROVIDERS: Emergency Provider Emergency Medicine; Visit Provider Emergency Medicine
DX: R51.9 Headache, unspecified (principal); G47.33 Obstructive sleep apnea (adult) (pediatric)
CPT/HCPCS: 70450; 71045; 80048; 84484; 85025; 85652; 93005; 99284